=== PATIENT | male | born 1955 | race Caucasian/White ===

== ENCOUNTER 2016-10-20 07:48 | Outpatient (CLI) ==
[2014-03-23 18:02] VITALS: BMI 25.8
[2016-10-20 08:03] LABS: BASOPHILS % (AUTO) 0.3 % (0.0-3.0); EOSINOPHILS # (AUTO) 0.1 K/ul (0.0-0.7); EOSINOPHILS % (AUTO) 1.5 % (0.0-7.0); HEMATOCRIT 36.2 % (42.0-52.0); HEMOGLOBIN 11.3 g/dl (14.0-18.0); IMMATURE GRANULOCYTE % (AUTO) 0.7 % (0.0-5.0); LYMPHOCYTES # (AUTO) 0.9 K/uL (0.60-3.4); LYMPHOCYTES % (AUTO) 14.4 (10.0-50.0); MEAN CORPUSCULAR HEMOGLOBIN 28.8 pg (27.0-31.0); MEAN CORPUSCULAR HGB CONC 31.2 (31.8-35.4); MEAN CORPUSCULAR VOLUME 92.3 fl (80.0-94.0); MONOCYTES # (AUTO) 0.5 K/uL (0.4-2.0); MONOCYTES % (AUTO) 7.5 (0-10); NEUTROPHILS # (AUTO) 4.6 K/ul (2.0-6.9); NEUTROPHILS % (AUTO) 75.6; PLATELET COUNT 211 10^3/uL (140-440); RED BLOOD COUNT 3.92 10^6/ul (4.70-6.10); WHITE BLOOD COUNT 6.12 K/ul (4.2-10.2)
[2016-10-20 08:40] LABS: ALBUMIN 3.4 g/dL (3.4-5.0); ALBUMIN/GLOBULIN RATIO 1.03; ANION GAP 12.1; BILIRUBIN,TOTAL 0.24 mg/dL (0.00-1.20); BUN/CREATININE RATIO 17.34; CHOL/HDL RATIO 5.5 (4.5-6.4); CREATININE 0.98 mg/dL (0.60-1.10); POTASSIUM 4.1 mmol/L (3.5-5.1); TOTAL PROTEIN 6.7 g/dL (6.4-8.2)
--- NOTE | 2016-10-20 09:13 | MRI ---
EXAM: MRI of the left shoulder without contrast COMPARISON: None available. HISTORY: Left shoulder pain with decreased range of motion for 1 week. No known injury. TECHNIQUE: Multiplanar noncontrast MR images of the left shoulder were acquired using a 1.5 Briana m agnet. FINDINGS: There is marked glenohumeral joint osteoarthrosis with extensive full-thickness cartilage defects on both sides of the joint with subchondral edema/cystic change/sclerosis articular surface remodeling. There are small marginal osteophytes. Articular surface remodeling is most pronounced at the level of the posterior glenoid. Mild posterior subluxation of the humeral head within the g lenoid fossa without a lindsey dislocation. There is a large glenohumeral joint effusion with some sy novial thickening and thin internal septations throughout the joint. Cortical irregularity involvin g the superior portion of the humeral head extending just proximal to the greater tuberosity attachm ent the rotator cuff measuring 1.2 cm extent with underlying marrow edema as well as some cortical i rregularity at the level of the glenoid. This could represent the erosive change in the setting of an inflammatory arthritis such as rheumatoid arthritis or infection and clinical correlation is tasha mmended. Alternatively, this could represent sequela of previous impaction injury though no history of trauma was provided. Small filling defects throughout the posterior portion of the joint sugges ting small loose bodies. Diminished size irregularity the glenoid labrum most pronounced superiorly and posteriorly related to a degenerative type tear. There is moderate supraspinatus and subscapularis tendinosis with mild infraspinatus tendinosis. Mi ld thinning and articular surface irregularity the supraspinatus. The critical zone measuring 1.4 c m medial to lateral dimension related to articular surface fraying/partial thickness articular surfa ce tear. This involves less than 50% of the tendon thickness without a full-thickness tear or tendo n retraction. No significant fluid in the subacromial/subdeltoid bursa. Hyperintense signal and thi ckening of the axillary pouch which may represent sequela of previous capsular sprain or changes of adhesive capsulitis. There is a tear of the long head biceps within its intra-articular and proximal bicipital groove seg ments. Capsular hypertrophy and marginal osteophytes at the acromioclavicular joint without evidence of an os acromiale or abnormal widening of the acromioclavicular joint space. No soft tissue mass identif ied. IMPRESSION: 1. Marked glenohumeral joint osteoarthrosis. Mild posterior subluxation of the humeral head within the glenoid fossa without a lindsey dislocation. 2. Large, complex glenohumeral joint effusion. Reactive marrow edema and possibly erosive change i nvolving the humeral head and glenoid and correlation for signs of an inflammatory arthritis such as rheumatoid arthritis versus infection is recommended. Correlation with aspiration is recommended. 3. Degenerative type tear of the glenoid labrum. 4. Tear of the long head biceps. 5. Moderate rotator cuff tendinosis. Articular surface fraying/shallow partial thickness articular surface tear of the supraspinatus without a full-thickness tear or tendon retraction. 6. Hyperintense signal and thickening of the axillary pouch which may represent sequela previous ca psular injury or changes of adhesive capsulitis. 7. Loose bodies.
== END 2016-10-20 07:49 | disposition home or self-care (01) ==
LOC: RAD 07:48
PROVIDERS: ATTEND Nurse Practitioner Family
DX: M25.512 Pain in left shoulder (principal); Z00.00 Encounter for general adult medical examination without abnormal findings; Z12.5 Encounter for screening for malignant neoplasm of prostate
CPT/HCPCS: 36415; 80053; 80061; 84443; 85025

== ENCOUNTER 2017-01-19 07:33 | Outpatient (CLI) ==
[2014-03-23 18:02] VITALS: BMI 25.8
[2017-01-19 08:32] LABS: ERYTHROCYTE SEDIMENTATION RATE 39 mm/hr (0-15); ESR INTERNAL QC INTERNAL QC VALID
--- NOTE | 2017-01-19 12:21 | NM ---
EXAM: Whole body bone scan HISTORY: Left shoulder pain, no trauma, COMPARISON: MRI of left shoulder on 10/20/2016 showed osteoarthrosis. Large joint effusion. TECHNIQUE: Anterior and posterior whole body bone scans were obtained following the intravenous admi nistration of 26.8 mCi of technetium 99m HDP, followed by spot views of areas of interest. FINDINGS: Moderately increased isotope activity is seen involving T8 vertebral body. Mild to modera tely increased isotope uptake is seen involving T10 vertebral body. These vertebrae may be partiall y collapsed. Intense isotope activity is present in the region of the left humeral head. This could be traumatic or due to severe arthrosis. Intense isotope activity is present in the region of the left ankle. This could be due to acute inj ury. No other abnormal focus of increased or decreased isotope uptake is seen. Kidneys and soft tissues appear unremarkable. IMPRESSION: 1. Increased isotope activity identified involving T8 and T10 vertebral bodies which may be partial ly collapsed. Could be traumatic. Suggest radiographic correlation. 2. Traumatic or severe arthritic change left humeral head. 3. Traumatic lesion left ankle.
[2017-01-20 08:04] LABS: RHEUMATOID ARTHRITIS FACTOR < 10.0 IU/mL (0.0-13.9)
[2017-01-20 15:20] LABS: A/G RATIO 1.2 (0.7-1.7); ALPHA-1 GLOBULIN 0.3 g/dL (0.0-0.4); ALPHA-2 GLOBULIN 0.8 g/dL (0.4-1.0); BETA GLOBULIN 1.1 g/dL (0.7-1.3); GAMMA GLOBULIN 0.9 g/dL (0.4-1.8)
== END 2017-01-19 07:34 | disposition home or self-care (01) ==
LOC: RAD 07:33
PROVIDERS: ATTEND Orthopaedic Surgery
DX: M25.512 Pain in left shoulder (principal); M75.92 Shoulder lesion, unspecified, left shoulder; S46.112A Strain of muscle, fascia and tendon of long head of biceps, left arm, initial encounter
CPT/HCPCS: 36415; 84153; 84165; 85651; 86430

== ENCOUNTER 2017-06-03 12:03 | Outpatient (CLI) ==
[2014-03-23 18:02] VITALS: BMI 25.8
--- NOTE | 2017-06-03 14:18 | MRI ---
EXAM: MRI of the left shoulder without contrast COMPARISON: MRI of the left shoulder 10/20/2016. Fluoroscopic guided left shoulder aspiration 02/09. Bone scan 01/19/2017. HISTORY: Shoulder pain and decreased range of motion. No known injury. Chondrocalcinosis. TECHNIQUE: Multiplanar noncontrast MR images of the left shoulder were acquired using a 1.2 Briana m agnet. FINDINGS: There is moderate supraspinatus and subscapularis tendinosis with mild infraspinatus tend inosis. Mild thinning articular surface irregularity of the supraspinatus at the critical zone thro ugh the insertional fibers related to articular surface fraying/shallow partial-thickness articular surface tear. This is unchanged without a full-thickness tear or tendon retraction. Trace fluid in the subacromial/subdeltoid bursa. There is marked glenohumeral joint osteoarthrosis with extensive full-thickness cartilage defects on both sides of the joint with subchondral edema/cystic change/sclerosis. Progressive deformity noman deling of the articular surface of the glenoid with some posterior subluxation of the humeral head w ithin the glenoid fossa. Erosive change of the humeral head posteriorly and superiorly as previousl y described with underlying marrow edema. Diminished size of the glenoid labrum suggesting a degene rative type tear. Large glenohumeral joint effusion with thin internal septations and synovial thic kening, nonspecific. Correlate with results previous aspiration. Loose bodies posteriorly. The long head of the biceps is torn within its intra-articular and proximal bicipital groove segment s. Moderate hypertrophic degenerative changes of the acromioclavicular joint. No evidence of an os acr omiale or abnormal widening of the acromioclavicular joint space. No soft tissue mass. Diffuse mus osei atrophy. IMPRESSION: 1. Large, complex glenohumeral joint effusion as described on the previous study. This is nonspeci fic but differential considerations including infection, an inflammatory arthritis such as rheumatoi d arthritis or crystal deposition disease such as gout. Correlate with clinical history and results of previous aspiration. 2. Marked glenohumeral joint osteoarthrosis with progressive remodeling and irregularity of the art icular surface of the glenoid. Erosive changes of the humeral head as previously described. 3. Moderate rotator cuff tendinosis. Articular surface fraying/shallow partial-thickness articular surface tear of the supraspinatus. No full-thickness tear or tendon retraction. 4. Tear of the long head biceps. 5. Hypertrophic degenerative changes of the acromioclavicular joint. 6. Degenerative type tear of the glenoid labrum. 7. Muscle atrophy. 8. Fluid in the subacromial/subdeltoid bursa.
== END 2017-06-03 12:04 | disposition home or self-care (01) ==
LOC: RAD 12:03
PROVIDERS: ATTEND Orthopaedic Surgery
DX: M11.20 Other chondrocalcinosis, unspecified site (principal)

== ENCOUNTER 2017-06-12 17:39 | Emergency (ER) ==
[2017-06-12 17:43] VITALS: BP 128/83; TEMP 100.5; BMI 27.3
[2017-06-12 18:27] LABS: BASOPHILS % (AUTO) 0.3 % (0.0-3.0); EOSINOPHILS # (AUTO) 0.1 K/ul (0.0-0.7); EOSINOPHILS % (AUTO) 0.8 % (0.0-7.0); HEMATOCRIT 31.1 % (42.0-52.0); HEMOGLOBIN 9.6 g/dl (14.0-18.0); IMMATURE GRANULOCYTE % (AUTO) 0.3 % (0.0-5.0); LYMPHOCYTES # (AUTO) 1.1 K/uL (0.60-3.4); LYMPHOCYTES % (AUTO) 12.5 (10.0-50.0); MEAN CORPUSCULAR HEMOGLOBIN 24.1 pg (27.0-31.0); MEAN CORPUSCULAR HGB CONC 30.9 (31.8-35.4); MEAN CORPUSCULAR VOLUME 78.1 fl (80.0-94.0); MONOCYTES # (AUTO) 0.8 K/uL (0.4-2.0); MONOCYTES % (AUTO) 8.5 (0-10); NEUTROPHILS # (AUTO) 6.8 K/ul (2.0-6.9); NEUTROPHILS % (AUTO) 77.6; PLATELET COUNT 325 10^3/uL (140-440); RED BLOOD COUNT 3.98 10^6/ul (4.70-6.10); WHITE BLOOD COUNT 8.78 K/ul (4.2-10.2)
--- NOTE | 2017-06-12 18:35 | ED.PDOC ---
General ED Provider: Dr. ERNESTO HOFFMAN Chief Complaint: Non-specific Complaint Stated Complaint: dysphagia, weight loss Time Seen by Physician: 17:45 ( OCCASION HEMATEMESIS) Mode of Arrival: Walk-In Information Source: Patient Exam Limitations: No limitations [facility] T[facility] Documentation Reviewed and Agree: Yes GI Complaint Exam - Abdominal Pain Complaint/Exam Onset: Gradual Duration: OVER COURSE OF SEVERAL MONTHS HAS INCREASED DYSPHAGIA TO SOLIDS Symptoms Are: Resolved Timing: Constant Initial Severity: Mild Current Severity: Mild Character: Reports: Aching Aggravating: Reports: Food Alleviating: Reports: None Associated Signs and Symptoms: Reports: Nausea, Vomiting. Denies: Diaphoresis, Fever, Cough, Chest pain, Dizziness, Back pain, Constipation, Blood in stool, Dysuria, Urinary frequency, Decreased urine output, Decreased appetite, Discharge, Diarrhea, Decreased activity AAA Risk Factors: Reports: Smoking Cardiac Risk Factors: Reports: Smoking Review of Systems - Review Of Systems Constitutional: Reports: Malaise Eyes: Reports: No symptoms Ears, Nose, Mouth, Throat: Reports: Throat pain Respiratory: Reports: No symptoms Cardiac: Reports: No symptoms GI: Reports: No symptoms : Reports: No symptoms Musculoskeletal: Reports: No symptoms Skin: Reports: No symptoms Neurological: Reports: No symptoms Endocrine: Reports: No symptoms Hematologic/Lymphatic: Reports: No symptoms All Other Systems: Reviewed and Negative Past Medical History - Past Medical History Previously Healthy: Yes Endocrine: Reports: None Cardiovascular: Reports: None Respiratory: Reports: None Hematological: Reports: None Gastrointestinal: Reports: None Genitourinary: Reports: None Neuro/Psych: Reports: None Musculoskeletal: Reports: None Cancer: Reports: None - Surgical History General Surgical History: Reports: None - Family History Family History: Reports: None - Social History Smoking Status: Current every day smoker Hx Substance Use: No Alcohol Screening: None Physical Exam - Physical Exam Appearance: Well-appearing, No pain distress, Well-nourished Eyes: SHIRAZ, EOMI, Conjunctiva clear ENT: Ears normal, Nose normal, Oropharynx normal Respiratory: Airway patent, Breath sounds clear, Breath sounds equal, Respirations nonlabored Cardiovascular: RRR, Pulses normal, No rub, No murmur GI/: Soft, Nontender, No masses, Bowel sounds normal, No Organomegaly Musculoskeletal: Normal strength, ROM intact, No edema, No calf tenderness Skin: Warm, Dry, Normal color Neurological: Sensation intact, Motor intact, Reflexes intact, Cranial nerves intact, Alert, Oriented Psychiatric: Affect appropriate, Mood appropriate Critical Care Note - Critical Care Note Total Time (mins): 0 Course - Course Hematology/Chemistry: 06/12/17 18:22 06/12/17 18:22 Orders, Labs, Meds: Lab Review 06/12/17 18:22 WBC 8.78 RBC 3.98 L Hgb 9.6 L Hct 31.1 L MCV 78.1 L MCH 24.1 L MCHC 30.9 L RDW Coeff of Angelica 15.3 H Plt Count 325 Immature Gran % (Auto) 0.3 Neut % (Auto) 77.6 Lymph % (Auto) 12.5 Gosper % (Auto) 8.5 Eos % (Auto) 0.8 Baso % (Auto) 0.3 Immature Gran # (Auto) 0.0 Neut # 6.8 Lymph # 1.1 Gosper # 0.8 Eos # 0.1 Baso # 0.0 PT 10.1 INR 0.99 APTT 22.4 L Sodium 141 Potassium 3.9 Chloride 105 Carbon Dioxide 22 L Anion Gap 17.9 BUN 16 Creatinine 1.04 Estimated GFR (MDRD) 73.00 BUN/Creatinine Ratio 15.38 Glucose 109 Calcium 10.0 Total Bilirubin 0.32 AST 10 L ALT < 6 L Alkaline Phosphatase 60 Total Protein 7.1 Albumin 3.7 Globulin 3.4 Albumin/Globulin Ratio 1.09 Orders Category Date Time Status CBC W/ AUTO DIFF Stat LAB 06/12/17 18:22 Completed COMPREHENSIVE METABOLIC PANEL Stat LAB 06/12/17 18:22 Completed MOLECULAR GROUP A STREP Stat LAB 06/12/17 18:22 Completed PARTIAL THROMBOPLASTIN TIME Stat LAB 06/12/17 18:22 Completed PT WITH INR Stat LAB 06/12/17 18:22 Completed RAPID STREP SCREEN [STREP SCREEN] Stat LAB 06/12/17 18:22 Completed CHEST, 2 VIEWS PA & LAT Stat RADS 06/12/17 18:17 Completed Vital Signs: Temp Pulse Resp BP Pulse Ox 06/12/17 17:39 100.5 F H 103 H 20 128/83 95 Departure - Departure Time of Disposition: 19:00 (need for johnson/coloscopy to rule out cancer discussed rn at bedside ) Disposition: HOME SELF-CARE Discharge Problem: Anemia Dysphagia Qualifiers: Dysphagia type: unspecified Qualifier Code: (R13.10) Dysphagia, unspecified Instructions: Dysphagia (ED), Hematemesis (ED) Condition: Good Pt referred to PMD for follow-up: Yes (TOLD PT MUST HAVE ENDOSCOPY TO RULE OUT CANCER ) Additional Instructions: Follow up with family physician regarding scans performed in this ER. Allergies/Adverse Reactions: Allergies No Known Allergies Allergy (Verified 06/12/17 17:45) Home Medications: Ambulatory Orders Fluticasone/Salmeterol 250/50 [Advair 250-50 Diskus] 1 puff IH BID 03/23/14 Disposition Discussed With: Patient
[2017-06-12 18:41] LABS: PARTIAL THROMBOPLASTIN TIME 22.4 SEC (23.9-40.0); PROTHROMBIN TIME 10.1 SEC (9.3-11.0)
[2017-06-12 18:48] LABS: ALANINE AMINOTRANSFERASE < 6 U/L (12-78); ALBUMIN 3.7 g/dL (3.4-5.0); ALBUMIN/GLOBULIN RATIO 1.09; ALKALINE PHOSPHATASE 60 U/L (56-119); ANION GAP 17.9; ASPARTATE AMINO TRANSFERASE 10 U/L (15-37); BILIRUBIN,TOTAL 0.32 mg/dL (0.00-1.20); BLOOD UREA NITROGEN 16 mg/dL (7-18); BUN/CREATININE RATIO 15.38; CARBON DIOXIDE 22 mmol/L (23-31); CHLORIDE 105 mmol/L (98-107); CREATININE 1.04 mg/dL (0.60-1.10); GLUCOSE 109 mg/dL (82-115); POTASSIUM 3.9 mmol/L (3.5-5.1); SODIUM 141 mmol/L (136-145); TOTAL PROTEIN 7.1 g/dL (5.8-8.1)
--- NOTE | 2017-06-12 19:08 | DI ---
EXAM: Chest two views CLINICAL INDICATION: Cough. COMPARISON: 02/27/2017. FINDINGS: PA and lateral views of the thorax are provided. There are chronic underlying pulmonary parenchymal changes. The remainder of the pulmonary parenchy ma is clear and there is no pleural abnormality. The cardiomediastinal silhouette and visualized shanell ny structures are unchanged. IMPRESSION: No interval change, with no acute pulmonary abnormality.
== END 2017-06-12 19:34 | disposition home or self-care (01) ==
LOC: ED 17:39
DX: R13.10 Dysphagia, unspecified (principal); K92.0 Hematemesis; D64.9 Anemia, unspecified; R63.4 Abnormal weight loss; F17.210 Nicotine dependence, cigarettes, uncomplicated
CPT/HCPCS: 36415; 80053; 85025; 85610; 85730; 87651; 87880; 99283

== ENCOUNTER 2017-07-10 13:00 | Outpatient (RCR) ==
--- NOTE | 2017-07-10 10:01 | RS.OPPTEV2 ---
Date of Note: 07/08/17 Visit #: 1 Date of Evaluation: 07/08/17 Payer Source: Medicaid Date of Onset/Injury/Change in Status: 07/03/17 Surgery Performed?: Yes (L shld debridement and tendon repair) Procedure Performed: arthroscopic rotator cuff repair, debridement of joint including articular cartilage labrum, biceps tendon 07/03/17 Date of Procedure: 07/03/17 Treatment Diagnosis: L shoulder rotator cuff tear, biceps tendinopathy, pseudogout, OA History of Condition/Mechanism of Injury:: pt with L shld pain. MRI shows rotator cuff tendinosis, erosive OA, pseudogout, incomplete tear of biceps tendon. Prior Level of Function.....Patient was independent with: ADL's, Self Care, Ambulation/Mobility Level of Function: independent with ADL's with pain in L shld Functional Limitations: Sleep, Self Care, ADL's, Reaching, Pushing, Pulling, Lifting, Carrying Current Subjective/complaints:: pt states he has had trouble sleeping and getting comfortable. pt reports has not been using ice because was not told to do that. Sister reports the MD said he did repair the tendon. Sister reports MD said pt would need total shld replacement in a year. pt with cryocuff around shld. pt did not receive cooler attachment and had thought this was part of his brace and had not removed since 07/03/17 because he was told only a medical person could remove the sling. Advised pt's sister to call MD office about the other part of cryocuff. Treatment Side (optional): Left *Precautions: PROM only Medical History Medical History: COPD, Arthritis Medical History Comments:: MD 2015, GERD, Peptic ulcer disease, Stroke Surgical History Comments:: L shld tendon repair and debridement 07/03/17 Smoking Status: Current every day smoker Hx Home Medications: albuterol HFA 90 mcg/actuation inhaler, albuterol 2.5mg/ 3ml nebulizer solution, alum-mag hydroxide-simeth suspension, budesonide- formoterol actuation inhaler, lorazepam, pantoprazole, tiotropium, hydrocodone/ acetaminophen(new med for pain) Patient's Goals: Decrease pain and be able to use my arm. Pain Assessment - Pain Description Pain Location: L shld Pain Description: Burning, Sharp Current Pain Intensity: 8 Worst Pain Intensity: 10 Other Comments regarding Pain:: unable to get comfortable for sleep Functional Outcome Measure UE Functional Index: 31 (61% impaired) - G Codes & Severity Modifier G Codes & Modifier: n/a Source of G Code score: n/a Observation - Observation Inspection: pt seen with sling in place. Bruising noted to L shld, dressing intact. min non pitting edema noted to Lshld Posture: Forward Head, Rounded Shoulders, Increased Thoracic Kyphosis, Decreased Lumbar Lordosis Handedness: Right Gait - Gait Pattern General Gait Pattern Observation: No Deviations/Normal, Trunk Anterior to Pelvis Gait Comments: pt amb with flexed posture, no LOB noted. General Range of Motion: Cervical ROM WFL's with pain in L shld with R rotation and side bending. BLE ROM WFL's Muscle Strength: BLE 5/5. RUE 4+/5 Shoulder ROM: Right WFL's Shoulder Muscle Strength: Right WFL's - Left Shoulder ROM Left Shoulder Flexion: 30 (audible noise with ROM, pt states MD said is bone on bone) Left Shoulder Extension: 30 Left Shoulder Abduction: 45 Left Shoulder ROM Limitations: Soft Tissue Tightness, Muscle Weakness, Pain - Left Shoulder Strength Left Shoulder Flexion: Not Tested Left Shoulder Extension: Not Tested Left Shoulder Abduction: Not Tested Left Shoulder Adduction: Not Tested Left Shoulder External Rotation: Not Tested Left Shoulder Internal Rotation: Not Tested Comments: Lshld not MMT due to orders for PROM only. Elbow ROM: Bilaterally WFL's Elbow Muscle Strength: Right WFL's - Left Elbow Strength Left Elbow Extension: 3 Fair Left Elbow Flexion: 3 Fair Left Forearm Pronation: Not Tested Left Forearm Supination: Not Tested Comments: atleast 3/5 as noted by AROM Wrist ROM: Bilaterally WFL's Wrist Muscle Strength: Right WFL's - Left Wrist Strength Left Wrist Extension: 3 Fair Left Wrist Flexion: 3 Fair Left Wrist Radial Deviation: 3 Fair Left Wrist Ulnar Deviation: 3 Fair Palpation Palpation Findings: Tenderness, Muscle Guarding Comments:: to L shld/scapular area as well as cervical, upper trap. Sensation - Sensation Right Upper Extremity: Intact/Normal Left Upper Extremity: Intact/Normal Right Lower Extremity: Intact/Normal Left Lower Extremity: Intact/Normal Sensation Description: Within Normal Limits Balance - Sitting Balance Static Sitting Balance: Normal Dynamic Sitting Balance: Good - Standing Balance Static Standing Balance: Good Dynamic Standing Balance: Good - Comments Balance Assessment Comments: Tinetti score 23/28 Interventions - Exercise/Activities/Manual Therapy Exercises/Activities: PROM L shld Total minutes of Exercise: 15 Manual Therapy: n/a HOME EXERCISE PROGRAM: pt given written HEP with pendulum ex, scapular retraction as well as instructions for ice to decreased edema, pain - Charges Total Direct Minutes: 60 Total Treatment Time: 70 Procedures billed for this date of service:: eval 4 Assessment Assessment: pt presents with pain, edema and decreased ROM L shld s/p tendon repair and debridement. Feel pt would benefit from PT for PROM progressing as MD orders as well as education on positioning, don/doff brace, ice to decrease edema, as well as pendulum PROM ex to decrease pain as well as improve functional mobility Patient Education: Education of diagnosis, Home Exercise Program, Home Safety, Education of Plan of Care Rehab Potential: Good Short Term Goals Goal #1: pt rate pain < 7/10 L UE Goal to be met by: 07/23/17 Goal #2: pt with improved L shld ROM flex 45 abd 60 Goal to be met by: 07/23/17 Penitentiary Goals Goal #1: pt with improved ROM L shld flex 60 abd 90 with less pain. Goal to be met by: 07/31/17 Goal #2: pt demonstrate indepedence with HEP to improve ROM and function LUE Goal to be met by: 07/31/17 Goal #3: pt with improved strength LUE shld 2-/5 Goal to be met by: 07/31/17 Plan - Treatment to be Provided Procedures: Therapeutic Exercises (Current orders for PROM ONLY L shld), Therapeutic Activity, Manual Therapy, Patient Education Modalities: Electrical Stimulation, Ultrasound/Phonophoresis, Cryotherapy, Hot Packs - Treatment Plan Frequency: 2 X week Duration: 4 weeks ORDER # VISITS AND/OR THROUGH DATE: 8 visits through 07/31/17 - Treatment Code (1) Joint pain Code(s): M25.50 - PAIN IN UNSPECIFIED JOINT Qualifiers: Joint pain location: shoulder Laterality: left Qualified Code(s): M25.512 - Pain in left shoulder (2) Joint effusion Code(s): M25.40 - EFFUSION, UNSPECIFIED JOINT (3) Joint stiffness Code(s): M25.60 - STIFFNESS OF UNSPECIFIED JOINT, NOT ELSEWHERE CLASSIFIED
--- NOTE | 2017-07-10 16:37 | RS.OPPTDN ---
Subjective Date of Note: 07/10/17 Visit #: 2 Date of Evaluation: 07/08/17 Payer Source: Medicaid Treatment Diagnosis: L shoulder rotator cuff tear, biceps tendinopathy, pseudogout, OA Current Subjective/complaints:: Patient says he has taken his arm out of his sling and let hang. He says he is not sleeping well and is doing so in a "pull out bed." Reports his sister usually helps him with his pain medicine and did not take it prior to coming in today. *Precautions: PROM only Pain Assessment - Pain Description Pain Location: L upper arm Pain Description: Burning, Sharp Pain Description: no pain meds Current Pain Intensity: 7-8/10 - Heat/Cryotherapy Treatment: Cryotherapy (20 mins after therex to the L shoulder and upper arm in supine) Interventions - Exercise/Activities/Manual Therapy Exercises/Activities: Patient received PROM to the L shoulder and elbow. Patient performs shoulder shrugs in supine and scap adduction in sitting. Manual Therapy: n/a HOME EXERCISE PROGRAM: pt given written HEP with pendulum ex, scapular retraction as well as instructions for ice to decreased edema, pain - Charges Total Direct Minutes: 26 Total Treatment Time: 41 Procedures billed for this date of service:: cp, ex2 Assessment: Patient demo very guarded positioning with all PROM, but as time progressed, he was able to demo ~85 degrees shoulder flexion and 60 degrees shoulder abd. Discussed using ice consistently for pain and swelling and to wear a button down shirt. Patient Education: Education of diagnosis, Body/Joint mechanics, Home Exercise Program, Home Safety, Activity Modification, Education of Plan of Care Patient demonstrates compliance with HEP?: Yes Short Term Goals Goal #1: pt rate pain < 7/10 L UE Goal to be met by: 07/23/17 Goal #2: pt with improved L shld ROM flex 45 abd 60 Goal to be met by: 07/23/17 Skip Hoist Operator Goals Goal #1: pt with improved ROM L shld flex 60 abd 90 with less pain. Goal to be met by: 07/31/17 Goal #2: pt demonstrate indepedence with HEP to improve ROM and function LUE Goal to be met by: 07/31/17 Goal #3: pt with improved strength LUE shld 2-/5 Goal to be met by: 10/20/17 Plan PLAN OF CARE EXPIRES ON:: 07/31/17 ORDER # VISITS AND/OR THROUGH DATE: 8 visits through 07/31/17 PLAN: Progress Exercises (according to protocol)
== END 2017-07-11 ==
PROVIDERS: ATTEND Orthopaedic Surgery
DX: M25.512 Pain in left shoulder (principal); Z98.890 Other specified postprocedural states

== ENCOUNTER 2017-08-25 10:00 | Outpatient (RCR) ==
--- NOTE | 2017-08-13 16:50 | RS.OPPTDN ---
Subjective Date of Note: 08/13/17 Visit #: 11 Date of Evaluation: 07/08/17 Payer Source: Medicaid Treatment Diagnosis: L shoulder rotator cuff tear, biceps tendinopathy, pseudogout, OA Current Subjective/complaints:: Patient says using heat last appt seemed to relax his arm and improve pain level. He says he is wanting to see if Dr. Jenkins can see him sooner than 09/07/17, but also may just wait it out and then see if he can have TSR in [place]. *Precautions: PROM only Pain Assessment - Pain Description Pain Location: L upper arm Pain Description: Tightness, Aching Pain Description: no pain meds Current Pain Intensity: 5-6/10 - Heat/Cryotherapy Treatment: Hot Pack (15 mins to the L side of neck and along the shoulder and upper arm in sitting) Interventions - Exercise/Activities/Manual Therapy Exercises/Activities: Patient PROM to the L shoulder for flexion/abd, short range ER. AROM to wrist and elbow. Patient now blu ~155 degrees (passively) shoulder flexion today after prolonged PROM. Crepitus felt at random areas early in passive flexion, but as time progresses and motion improves, crepitus ceases. 5 and 7# digiflexors. Independent shoulder shrugs and assisted scap adduction multiple reps. Reapplied sling. Total minutes of Exercise: 30 Manual Therapy: n/a HOME EXERCISE PROGRAM: pt given written HEP with pendulum ex, scapular retraction as well as instructions for ice to decreased edema, pain - Charges Total Direct Minutes: 30 Total Treatment Time: 45 Procedures billed for this date of service:: hp, ex2 Assessment: Patient blu increased Passive flexion to ~155 degrees today in sitting. Decreased compensation and patient lean with ROM today compared to recent visits. Pain level remains moderate as he is not taking pain meds. Patient wishes to see MD sooner, but also says he may continue with the scheduled appt. It was discussed that patient may see if he could stay with his brother, which lives in [place], [place] and let him passively move his L UE and maintain his progress until he sees Dr. Jenkins in order to leave his current living situation. Patient Education: Home Exercise Program, Activity Modification Patient demonstrates compliance with HEP?: Yes Short Term Goals Goal #1: pt rate pain < 7/10 L UE Goal to be met by: 08/12/17 Progress towards Goal:: Progressing Goal #2: pt with improved L shld ROM flex 45 abd 60 Goal to be met by: 07/23/17 Progress towards Goal:: Met Residential Goals Goal #1: pt with improved ROM L shld flex 60 abd 90 with less pain. Goal to be met by: 08/28/17 Progress towards goal: Met Goal #2: pt demonstrate indepedence with HEP to improve ROM and function LUE Goal to be met by: 08/28/17 Progress towards goal: Progressing Goal #3: pt with improved strength LUE shld 2-/5 Goal to be met by: 08/28/17 Progress towards goal: Not Met Plan PLAN OF CARE EXPIRES ON:: 08/28/17 ORDER # VISITS AND/OR THROUGH DATE: 8 visits (2x4 until 08/28/17) PLAN: Progress Exercises (attend x 2 more weeks then attend MD appt)
--- NOTE | 2017-08-17 11:31 | RS.OPPTDN ---
Subjective Date of Note: 08/17/17 Visit #: 12 Date of Evaluation: 07/08/17 Payer Source: Medicaid Treatment Diagnosis: L shoulder rotator cuff tear, biceps tendinopathy, pseudogout, OA Current Subjective/complaints:: Patient says that his pain level is still high. Reports " My pain is nearly unbearable." He says he lost his exercises to do for home and his sister is requesting another copy. He also asks for Dr. Jenkins' s phone number. Says he has decided that he wants to get an earlier appt and hoping to have TSR. *Precautions: PROM only Pain Assessment - Pain Description Pain Location: L upper arm Pain Description: Tightness, Throbbing, Aching Pain Description: no pain meds Current Pain Intensity: 8/10 - Heat/Cryotherapy Treatment: Hot Pack (15 mins to the L shoulder/neck in sitting) Interventions - Exercise/Activities/Manual Therapy Exercises/Activities: Patient PROM to the L shoulder for flexion/abd, short range ER. AROM to wrist and elbow. Patient continues to blu ~155 degrees ( passively) shoulder flexion today after prolonged PROM. Crepitus felt at random areas early in passive flexion and was limited to only ~40 degrees initially. As time progresses and motion improves, crepitus ceases. 5 and 7# digiflexors. Independent shoulder shrugs and assisted scap adduction multiple reps. Reapplied sling. Reviewed HEP and encouraged him to perform these along with using ice. Patient also encouraged to contact his MD about his plans. Total minutes of Exercise: 30 Manual Therapy: n/a HOME EXERCISE PROGRAM: pt given written HEP with pendulum ex, scapular retraction as well as instructions for ice to decreased edema, pain - Charges Total Direct Minutes: 30 Total Treatment Time: 45 Procedures billed for this date of service:: hp, ex2 Assessment: Patient demo mod muscle guarding to the L UE during PROM today. He demo crepitus with increasing pain during shoulder flexion. Compensation by leaning to the R during early ROM, but later is able to allow for further shoulder flexion/abd. Patient Education: Education of diagnosis, Body/Joint mechanics, Home Exercise Program, Education of Plan of Care Comments: Patient received more copies of exercises. Short Term Goals Goal #1: pt rate pain < 7/10 L UE Goal to be met by: 08/12/17 Progress towards Goal:: Progressing Comments:: Increased the past few visits Goal #2: pt with improved L shld ROM flex 45 abd 60 Goal to be met by: 07/23/17 Progress towards Goal:: Met [facility] Goals Goal #1: pt with improved ROM L shld flex 60 abd 90 with less pain. Goal to be met by: 08/28/17 Progress towards goal: Met Comments: He is able to demo these ranges, but continues to have mod to severe pain. Goal #2: pt demonstrate indepedence with HEP to improve ROM and function LUE Goal to be met by: 08/28/17 Progress towards goal: Progressing Goal #3: pt with improved strength LUE shld 2-/5 Goal to be met by: 08/28/17 Progress towards goal: Not Met Comments: due to protocol and patient's reports of PROM only Plan PLAN OF CARE EXPIRES ON:: 08/28/17 ORDER # VISITS AND/OR THROUGH DATE: 8 visits (2x4 until 08/28/17) PLAN: Continue with PROM only due to MD orders. Patient to seek earlier f/u appt. to discuss possible TSR.
--- NOTE | 2017-08-19 13:48 | RS.OPPTDN ---
Subjective Date of Note: 08/19/17 Visit #: 13 Date of Evaluation: 07/08/17 Payer Source: Medicaid Treatment Diagnosis: L shoulder rotator cuff tear, biceps tendinopathy, pseudogout, OA Current Subjective/complaints:: Patient reports left shoulder pain "is killing me". States he will contact surgeons office as soon as he gets home to check on moving up his follow-up appointment. *Precautions: PROM only Pain Assessment - Pain Description Pain Location: L upper arm Pain Description: Tightness, Throbbing, Aching Pain Description: no pain meds Current Pain Intensity: 8/10 - Heat/Cryotherapy Treatment: Hot Pack ([id number] to the left shoulder prior to and 10mins following exercise. Patient in sitting. ) Interventions - Exercise/Activities/Manual Therapy Exercises/Activities: PROM of left shoulder for flexion, scaption, abduction, and short range ER. Passive and AROM to wrist and elbow. Passive shoulder flexion to 155 degrees (passively) shoulder flexion again today. 5 and 7# digiflexors. Shoulder shrugs and assisted scap abd/add multiple reps. Assisted patient with sling. Discussed HEP. Total minutes of Exercise: 25mins Manual Therapy: n/a HOME EXERCISE PROGRAM: pt given written HEP with pendulum ex, scapular retraction as well as instructions for ice to decreased edema, pain - Charges Total Direct Minutes: 25mins Total Treatment Time: 45mins Procedures billed for this date of service:: HP, EX2 Assessment: Patient continues to report a high pain rating and will contact physician this afternoon. Short Term Goals Goal #1: pt rate pain < 7/10 L UE Goal to be met by: 08/12/17 Progress towards Goal:: Regressing Comments:: Rates at 8/10 Goal #2: pt with improved L shld ROM flex 45 abd 60 Goal to be met by: 07/23/17 Progress towards Goal:: Met [facility] Goals Goal #1: pt with improved ROM L shld flex 60 abd 90 with less pain. Goal to be met by: 08/28/17 Progress towards goal: Met Goal #2: pt demonstrate indepedence with HEP to improve ROM and function LUE Goal to be met by: 08/28/17 Progress towards goal: Progressing Goal #3: pt with improved strength LUE shld 2-/5 Goal to be met by: 08/28/17 Progress towards goal: Not Met Plan PLAN OF CARE EXPIRES ON:: 08/28/17 ORDER # VISITS AND/OR THROUGH DATE: 8 visits (2x4 until 08/28/17) PLAN: Will continue patient this week for PROM per protocol.
--- NOTE | 2017-08-25 11:32 | RS.OPPTDN ---
Subjective Date of Note: 08/25/17 Visit #: 14 Date of Evaluation: 07/08/17 Payer Source: Medicaid Treatment Diagnosis: L shoulder rotator cuff tear, biceps tendinopathy, pseudogout, OA Current Subjective/complaints:: Patient reports he was able to speak with physicians office and appointment has been moved up to tomorrow. He reports pain at 8/10 at rest today and describes as "throbbing". Reports he to a Tramodol approx an hour ago, but states "they don't really help with the pain". *Precautions: PROM only Pain Assessment - Pain Description Pain Location: L upper arm Pain Description: Tightness, Throbbing, Aching Pain Description: no pain meds Current Pain Intensity: 8/10 at rest - Heat/Cryotherapy Treatment: Hot Pack ([id number] to the left shoulder prior to EX. Patient in sitting. ) Interventions - Exercise/Activities/Manual Therapy Exercises/Activities: PROM of left shoulder for flexion, scaption, abduction, and short range ER. Passive and AROM to wrist and elbow. 5 and 7# digiflexors. 1# dumbell for left wrist flex/ext and forearm sup/pronation. Shoulder shrugs and assisted scap abd/add multiple reps. Table slides. Assisted patient with sling. Discussed HEP and added self ROM with clasped hands. Total minutes of Exercise: 30mins Manual Therapy: n/a HOME EXERCISE PROGRAM: pt given written HEP with pendulum ex, scapular retraction as well as instructions for ice to decreased edema, pain - Objective Findings Observations,measurements,etc.: Passive shoulder flexion to 150-155 degrees ( passively) again today. AAROM left shoulder flexion to 95 degrees. 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 - Charges Total Direct Minutes: 30mins Total Treatment Time: 50mins Procedures billed for this date of service:: HP, EX2 Assessment: Patient continues to have a high pain rating. He will see his physician tomorrow for follow-up tomorrow. Patient will need to continue PROM and limited AAROM exercises. Short Term Goals Goal #1: pt rate pain < 7/10 L UE Goal to be met by: 08/12/17 Progress towards Goal:: Regressing Goal #2: pt with improved L shld ROM flex 45 abd 60 Goal to be met by: 07/23/17 Progress towards Goal:: Met Shelter Goals Goal #1: pt with improved ROM L shld flex 60 abd 90 with less pain. Goal to be met by: 08/28/17 Progress towards goal: Met Goal #2: pt demonstrate indepedence with HEP to improve ROM and function LUE Goal to be met by: 08/28/17 Progress towards goal: Progressing Goal #3: pt with improved strength LUE shld 2-/5 Goal to be met by: 08/28/17 Progress towards goal: Not Met Plan PLAN OF CARE EXPIRES ON:: 08/28/17 ORDER # VISITS AND/OR THROUGH DATE: 8 visits (2x4 until 08/28/17) PLAN: Hold at this time as initial POC has been completed and insurance approval has not been received. Patient may continue at a later date when he can progress to strengthening with post-op protocol and with insurance approval.
--- NOTE | 2017-08-28 15:55 | RS.CSNOTE ---
PT Case Note Date of Note: 08/28/17 Title of document: Call to MD office regarding patient Note: Spoke with Dr. Alejandro Jenkins's Acoustics Teacher. Explained that we have treated Mr. Talbert for 14 therapy sessions and at this time we have received no approval from [place] Medicaid for any of the visits. Explained that we would not be able to request more therapy and continue his therapy sessions, until we receive the initial therapy approval request. We have offered to have the patient come in once a week to review his HEP and progress it as his protocol indicates.
== END 2017-09-10 ==
PROVIDERS: ATTEND Orthopaedic Surgery
DX: M19.212 Secondary osteoarthritis, left shoulder (principal); R68.89 Other general symptoms and signs; S46.219A Strain of muscle, fascia and tendon of other parts of biceps, unspecified arm, initial encounter; M75.122 Complete rotator cuff tear or rupture of left shoulder, not specified as traumatic

== ENCOUNTER 2023-05-28 12:47 | Inpatient (IN) ==
--- NOTE | 2023-05-28 12:59 | ED.PDOC ---
General ED Provider: Dr. NIKHIL NICHOLAS MD Chief Complaint: Shortness of Air Stated Complaint: shortness of breath Time Seen by Provider: 05/28/23 12:57 Mode of Arrival: Walk-In Information Source: Patient Exam Limitations: No limitations Nursing and Triage Documentation Reviewed and Agree: Yes Respiratory Complaint Exam Shortness of Air Complaint/Exam Onset/Duration: ~1 week ago Symptoms Are: Worse Timing: Constant Initial Severity: Mild Current Severity: Moderate Character: Reports Dyspnea at rest, Dyspnea on exertion and Orthopnea Aggravating: Reports Movement and Recumbent position Alleviating: Reports None, Oxygen and Upright position Associated Signs and Symptoms: Reports Cough, Chest pain, Diaphoresis and Labored breathing Related History: Reports Similar episode (multiple, COPD) History of Healthcare-Acquired Pneumonia: Lives at shelter (Patient signed himself out of [facility] ~1 week ago after ~5-6 month stay.) Pulmonary Embolism Risk Factors: Reports None Cardiac Risk Factors: Reports None Pseudomonas Risk Factors: Reports Chronic Lung Disease Tuberculosis Risk Factors: Reports Communal living Home Oxygen Use: No Recent Stress Test: No Recent Echo/LV Function: No Respiratory Distress: Moderate Stridor Present: No Tracheal Deviation: No Subcutaneous Emphysema: No Accessory Muscle Use: Yes Retractions: Nasal Flaring, Supraclavicular, Intercostal and Diaphragmatic Diminished Breath Sounds: Yes Prolonged Expiratory Phase: Yes Unable to Speak Full Sentences: Yes Fatigue: Yes Leg Swelling: No Grunting Respirations: No Kussmaul Respirations: No Differential Diagnoses: Asthma, CHF, Pulmonary Edema, COPD Exacerbation, NH, Unstable Angina, Pneumonia, Pneumothorax, SARS, Bronchitis, Bronchiolitis, RSV, Bronchospasm, Laryngospasm, Mycoplasma, Pertussis, Sinusitis and URI Review of Systems Review Of Systems Constitutional: Reports No symptoms Respiratory: Reports Cough and Shortness of Breath All Other Systems: Reviewed and Negative [facility] Medical History (Updated 05/28/23 @ 18:48 by NIKHIL NICHOLAS MD) Arthritis M19.90 - Unspecified osteoarthritis, unspecified site (ICD-10) CVA (cerebral vascular accident) (~2015) I63.9 - Cerebral infarction, unspecified (ICD-10) Gastroesophageal reflux disease K21.9 - Gastro-esophageal reflux disease without esophagitis (ICD-10) Myocardial infarction (~2015) I21.9 - Acute myocardial infarction, unspecified (ICD-10) Family History (System 03/06/23 @ 10:46 by JONATHAN WALTON) SISTER Cancer BROTHER Cancer Social History (System 03/06/23 @ 10:46 by JONATHAN WALTON) Smoking and tobacco status: Current every day smoker Physical Exam Physical Exam Appearance: Reports Ill-appearing and Well-nourished Ill-appearing: Moderate Pain Distress: None Eyes: Reports SHIRAZ, EOMI and Conjunctiva clear ENT: Reports Ears normal and Nose normal Neck: Nonsupple (normal age-appropriate external appearance) Respiratory: Reports Airway patent, Breath sounds clear, Breath sounds equal, Breath sounds diminished and Respirations nonlabored Cardiovascular: Reports RRR GI/: Reports Soft, Nontender and Bowel sounds normal Musculoskeletal: Reports Normal strength Skin: Reports Warm, Dry and Normal color Neurological: Reports Sensation intact, Motor intact, Cranial nerves intact, Alert and Oriented Psychiatric: Reports Affect appropriate and Mood appropriate Interpretation EKG Interpretation EKG Interpretation By: ED Physician Time of EKG #1: 13:33 Rate: Tachy (125) Rhythm: Sinus Ectopy: None Mclean: NL ST Segment: Normal Interpretation: LAE EKG Comparison: Other (none available for comparison) Critical Care Note Critical Care Note Total Critical Care Time (mins): 0 Course Course 05/28/23 13:18 05/28/23 13:18 Orders, Labs, Meds: Lab Review 05/28/23 05/28/23 05/28/23 12:57 13:16 13:18 WBC 12.64 H RBC 4.65 L Hgb 13.3 L Hct 44.4 MCV 95.5 H MCH 28.6 MCHC 30.0 L RDW Coeff of Angelica 12.1 Plt Count 335 Immature Gran % (Auto) 1.0 Neut % (Auto) 84.4 H Lymph % (Auto) 5.3 L [place] % (Auto) 8.9 Eos % (Auto) 0.2 Baso % (Auto) 0.2 Neut # (Auto) 10.7 H Lymph # (Auto) 0.7 [place] # (Auto) 1.1 Eos # (Auto) 0.0 Baso # (Auto) 0.0 Immature Gran # (Auto) 0.1 Puncture Site Rrad Base Excess 4.0 H O2 Saturation 83.3 L ABG pH 7.36 ABG pCO2 52.0 H ABG pO2 50.0 L* ABG HCO3 29.4 H ABG Total CO2 31.0 H Daniele Test Pos Hemoglobin 1.2 Oxyhemoglobin 81.1 L Carboxyhemoglobin 4.3 H Total Hemoglobin 14.2 Sodium 141.8 Potassium 4.23 Chloride 98.5 Carbon Dioxide 31.2 H Anion Gap 16.33 BUN 21.9 H Creatinine 0.79 Estimated GFR (MDRD) 98.00 BUN/Creatinine Ratio 27.72 Glucose 114.3 H Calcium 9.27 Magnesium 1.51 L Total Bilirubin 0.53 AST 24.7 ALT 17.8 Alkaline Phosphatase 77.0 Total Creatine Kinase 48.3 L Troponin I 0.013 NT-Pro-B Natriuret Pep 771 H Total Protein 8.25 H Albumin 4.22 Globulin 4.03 Albumin/Globulin Ratio 1.04 Lipase 79.1 TSH 0.178 L Free T4 2.18 Influ A Molecular Assay Negative by naat Influ B Molecular Assay Negative by naat SARS CoV-2 RNA Rapid MARISOL Negative Orders Category Date Time Status ABG DRAW REQUEST Stat CARDIO 05/28/23 12:56 Completed EKG-(ED ONLY) Stat CARDIO 05/28/23 13:28 Completed Saline Lock [ED IV/MEDIPORT/POWERPORT] .ONCE EMERGENCY 05/28/23 15:24 Active ABG COOX Stat LAB 05/28/23 12:57 Completed CBC W/ AUTO DIFF Stat LAB 05/28/23 13:18 Completed CK [CREATINE KINASE] Stat LAB 05/28/23 13:18 Completed COMPREHENSIVE METABOLIC PANEL Stat LAB 05/28/23 13:18 Completed COVID [SARS COV-2 RNA RAPID MARISOL] Stat LAB 05/28/23 13:16 Completed FLU A & B MOLECULAR [FLU A/B MOLECULAR] Stat LAB 05/28/23 13:16 Completed FREE T4 (FREE THYROXINE) Stat LAB 05/28/23 13:18 Completed LIPASE Stat LAB 05/28/23 13:18 Completed MAGNESIUM Stat LAB 05/28/23 13:18 Completed PROBNP ED [NT-PROBNP(ED)] Stat LAB 05/28/23 13:18 Completed RAPID STREP SCREEN [MOLECULAR GROUP A STREP] Stat LAB 05/28/23 13:16 Completed TROPONIN I Stat LAB 05/28/23 13:18 Completed TSH [THYROID STIMULATING HORMONE] Stat LAB 05/28/23 13:18 Completed 0.9 % Sodium Chloride [Saline Flush] Meds 05/28/23 15:24 Active 1 syr IVF PRN PRN Ceftriaxone/D5w 1 gm Premix [Rocephin 1 gm/50 ml D5w] Meds 05/28/23 15:30 Active 1 gm in 50 ml IV DAILY Ipratropium/Albuterol Neb [Duoneb] Meds 05/28/23 13:46 Discontinued 3 ml NEB ONCE STA Sodium Chloride 0.9% [Sodium Chloride] 1,000 ml Meds 05/28/23 18:37 Discontinued IV BOLUS CHEST, 2 VIEWS PA & LAT Stat RADS 05/28/23 12:59 Completed Medications Generic Name Dose Route Start Last Admin Trade Name Freq PRN Reason Stop Dose Admin Acetaminophen 650 mg 05/28/23 19:30 Acetaminophen 325 Mg Tablet PO Q4H PRN Mild Pain Albuterol Sulfate 2.5 mg 05/28/23 19:30 05/28/23 20:15 Albuterol Sulfate 0.083% Vial.Neb NEB 2.5 mg RTQ4H PRN Administration Wheezing Albuterol/Ipratropium 3 ml 05/28/23 22:00 05/29/23 01:50 Ipratropium/Albuterol Vial.Neb NEB 3 ml RTQ4H QUINN Administration CEFTRIAXONE/D5W 1 GM PREMIX 1 gm in 50 mls @ 75 mls/hr 05/28/23 15:30 05/28/23 15:52 Rocephin 1 Gm/50 Ml D5w IV 05/31/23 15:29 75 mls/hr DAILY QUINN Administration Azithromycin 500 mg/ Sodium 250 mls @ 250 mls/hr 05/28/23 20:00 05/28/23 20:50 Chloride IV 05/31/23 19:59 250 mls/hr DAILY QUINN Administration Ketorolac Tromethamine 15 mg 05/28/23 20:11 05/29/23 03:06 Ketorolac Tromethamine 15 Mg/Ml Vial IVP 06/01/23 20:12 15 mg Q6HR PRN Administration Pain Methylprednisolone Sodium Succinate 40 mg 05/28/23 21:00 05/28/23 20:49 Methylprednisolone Sod Succ/Pf 125 Mg/2 Ml Vial IVP 40 mg Q8HR QUINN Administration Ondansetron HCl 4 mg 05/28/23 20:11 05/29/23 03:06 Ondansetron Hcl/Pf 4 Mg/2 Ml Sdv IVP 4 mg Q6H PRN Administration nausea & or Vomiting Sodium Chloride 1 syr 05/28/23 15:24 0.9% Sodium Chloride 10 Ml Disp.Syrin IVF PRN PRN To flush IV Discontinued Medications Generic Name Dose Route Start Last Admin Trade Name Freq PRN Reason Stop Dose Admin Al Hydroxide/Mg Hydroxide 30 ml 05/28/23 20:16 05/28/23 20:50 Mag Hydrox/Al Hydrox/Simeth 30 Ml Cup PO 05/28/23 20:17 30 ml ONCE ONE Administration Albuterol/Ipratropium 3 ml 05/28/23 13:46 05/28/23 13:55 Ipratropium/Albuterol Vial.Neb NEB 05/28/23 13:47 3 ml ONCE STA Administration Sodium Chloride 1,000 mls @ 1,000 mls/hr 05/28/23 18:37 05/28/23 18:39 Sodium Chloride IV 05/28/23 19:36 1,000 mls/hr BOLUS STA Administration CEFTRIAXONE/D5W 1 GM PREMIX 1 gm in 50 mls @ 75 mls/hr 05/29/23 09:00 Rocephin 1 Gm/50 Ml D5w IV 06/01/23 08:59 DAILY QUINN Metoclopramide HCl 10 mg 05/28/23 20:16 05/28/23 21:06 Metoclopramide Hcl 10 Mg/2 Ml IVP 05/28/23 20:17 10 mg ONCE ONE Administration Vital Signs: Temp Pulse Resp BP Pulse Ox 05/28/23 12:59 98.3 F 136 H 29 H 152/86 H 82 L Patient presents with approximately 1 week history of progressively worsening shortness of breath. On arrival his oxygen saturation on room air was noted to be 79%. An ABG was done on arrival, and when posted it was consistent with decreased Oxygen saturation and elevated CO2. He was placed on supplemental Oxygen, and is saturations normalized into the high 90s. Labs posted, significant for leukocytosis with a left shift and a fluid deficit. CXR reported 'Possible developing right lower lobe pneumonia with small effusions'. He was given IV Rocephin and IV normal saline to address. The Hospitalist LICENSED CLUB MANAGER, Manas Guevara, accepted him for admission. Discharge Plan Discharge Patient Disposition: ADMITTED INPATIENT Discharge Problem: Fluid volume deficit Community acquired pneumonia Qualifiers: Laterality: right Lung location: lower lobe of lung Qualified Code(s): J18.9 - Pneumonia, unspecified organism Did you review [place] [employer] for ALL controlled substances?: Not Applicable ED Provider: NIKHIL NICHOLAS Condition: Stable Physician Progress Note: []
[2023-05-28 13:08] LABS: ABG O2 HGB 81.1 % (95-100); ABG PH 7.36 (7.35-7.45); COHb 4.3 (0.5-1.5); HCO3 29.4 (21-28); MetHb 1.2 (0-1.5); sO2 83.3 % (94-98); tHb 14.2 g/dl (11.7-17.4)
[2023-05-28 13:24] LABS: BASOPHILS % (AUTO) 0.2 % (0.0-3.0); EOSINOPHILS % (AUTO) 0.2 % (0.0-7.0); HEMATOCRIT 44.4 % (42.0-52.0); HEMOGLOBIN 13.3 g/dl (14.0-18.0); IMMATURE GRANULOCYTE # (AUTO) 0.1 (0.0-1.0); LYMPHOCYTES # (AUTO) 0.7 K/uL (0.60-3.4); LYMPHOCYTES % (AUTO) 5.3 (10.0-50.0); MEAN CORPUSCULAR HEMOGLOBIN 28.6 pg (27.0-31.0); MEAN CORPUSCULAR VOLUME 95.5 fl (80.0-94.0); MONOCYTES # (AUTO) 1.1 K/uL (0.4-2.0); MONOCYTES % (AUTO) 8.9 (0-10); NEUTROPHILS # (AUTO) 10.7 K/ul (2.0-6.9); NEUTROPHILS % (AUTO) 84.4 % (42.2-75.2); PLATELET COUNT 335 10^3/uL (140-440); RDW COEFFICIENT OF VARIATION 12.1 % (11.6-14.8); RED BLOOD COUNT 4.65 10^6/ul (4.70-6.10); WHITE BLOOD COUNT 12.64 K/ul (4.2-10.2)
--- NOTE | 2023-05-28 13:39 | DI ---
EXAM: CHEST RADIOGRAPH TECHNIQUE: Two views. Frontal and lateral. HISTORY: Dyspnea COMPARISON: 03/05/2023 FINDINGS: There are small bilateral pleural effusions. There is emphysema. There are patchy chronic changes i n the lower lobes. Air space disease in the right lower lobe laterally appears somewhat more conspic uous and the possibility of developing pneumonia cannot be excluded. The heart size is normal. Left shoulder arthroplasty IMPRESSION: 1. Possible developing right lower lobe pneumonia with small effusions
[2023-05-28 13:41] LABS: ALANINE AMINOTRANSFERASE 17.8 U/L (0-50); ALBUMIN 4.22 g/dL (3.5-5.0); ASPARTATE AMINO TRANSFERASE 24.7 U/L (17-59); BILIRUBIN,TOTAL 0.53 mg/dL (0.2-1.3); BLOOD UREA NITROGEN 21.9 mg/dL (9-20); CALCIUM 9.27 mg/dL (8.4-10.2); CARBON DIOXIDE 31.2 mmol/L (22-30.0); CHLORIDE 98.5 mmol/L (98-107); CREATINE KINASE 48.3 U/L (55-170); CREATININE 0.79 mg/dL (0.60-1.10); GLUCOSE 114.3 mg/dL (74-106); MAGNESIUM 1.51 mg/dL (1.6-2.3); POTASSIUM 4.23 mmol/L (3.5-5.1); SODIUM 141.8 mmol/L (134.5-145); TOTAL PROTEIN 8.25 g/dL (6.3-8.2)
[2023-05-28 13:41] LABS: MOLECULAR FLU A NEGATIVE BY NAAT (NEGATIVE); MOLECULAR FLU B NEGATIVE BY NAAT (NEGATIVE)
[2023-05-28] MEDS ORDERED: DUONEB NEB STA (13:46)
[2023-05-28 13:51] LABS: TROPONIN I 0.013 ng/ml (0.0000-0.120)
[2023-05-28 14:00] LABS: SARS COV-2 RNA RAPID NAAT NEGATIVE (NEGATIVE)
[2023-05-28 14:09] LABS: THYROID STIMULATING HORMONE 0.178 uIU/L (0.465-4.68)
[2023-05-28] MEDS: ROCEPHIN 1 GM/50 ML D5W 1 GM/50 ML BAG IV SCH (15:52)
[2023-05-28] MEDS ORDERED: SODIUM CHLORIDE 1,000 ML IV STA (18:37)
[2023-05-28] MEDS ORDERED: ALBUTEROL 0.083% NEB NEB PRN (19:30)
[2023-05-28] MEDS ORDERED: TYLENOL PO PRN (19:30)
[2023-05-28] MEDS ORDERED: ZITHROMAX 500 MG in SODIUM CHLORIDE 250 ML IV SCH (20:00)
[2023-05-28] MEDS ORDERED: REGLAN IVP ONE (20:16)
[2023-05-28] MEDS ORDERED: MYLANTA SUSP PO ONE (20:16)
[2023-05-28 20:36] LABS: LIPASE 79.1 U/L (23-300)
[2023-05-28] MEDS: SOLU-MEDROL 125 MG IVP SCH (20:49)
[2023-05-28] MEDS: ZOFRAN 4 MG/2 ML IVP PRN (20:50)
[2023-05-28] MEDS: TORADOL IVP PRN (20:50)
[2023-05-28] MEDS: DUONEB NEB SCH (21:15)
[2023-05-28 23:50] VITALS: BMI 24.9
[2023-05-29 00:19] LABS: ABG O2 HGB 93.4 % (95-100); BEecf 6.6 (-2.0-3.0); COHb 2.7 (0.5-1.5); HCO3 33.5 (21-28); TCO2 35.7 (19-24); sO2 95.9 % (94-98); tHb 17.8 g/dl (11.7-17.4)
[2023-05-29 00:21] LABS: ABG PH 7.27 (7.35-7.45)
[2023-05-29 01:42] LABS: ABG O2 HGB 90.8 % (95-100); ABG PH 7.31 (7.35-7.45); BEecf 7.4 (-2.0-3.0); COHb 2.5 (0.5-1.5); HCO3 33.7 (21-28); MetHb 1.2 (0-1.5); TCO2 35.8 (19-24); sO2 92.9 % (94-98); tHb 18.2 g/dl (11.7-17.4)
[2023-05-29] MEDS: DUONEB NEB SCH ×3 (01:50→13:16)
[2023-05-29] MEDS: TORADOL IVP PRN (03:06)
[2023-05-29] MEDS: ZOFRAN 4 MG/2 ML IVP PRN (03:06)
--- NOTE | 2023-05-29 03:20 | CT ---
EXAM: CT ANGIOGRAPHY OF THE CHEST History: Respiratory difficulty Technique: 2.[address] of the chest utilizing CT angiography protocol. Multiplanar and m aximum intensity projection reformations were performed. FINDINGS: Technically adequate for evaluation of pulmonary arteries and aorta. There are no pulmona ry artery filling defects. Moderate - severe emphysema. Consolidative change of the posterior left lower lobe. Bronchial wall thickening in the left greater than right lower lobes. Mediastinal lymph node abundance without pathologic enlargement. Small hiatus hernia. There is reflux material colli mated in the esophagus. No acute chest wall abnormality. No acute findings of the upper abdomen. Impression: 1. No evidence of pulmonary artery thrombus 2. Bilateral lower lobe bronchial wall thickening, left greater than right. Endobronchial secretion s in the left lower lobe and some consolidative change posteriorly. Correlate for possible pneumonia . 3. Underlying emphysema All CT scans are performed using dose optimization techniques as appropriate to the performed exam an d include at least one of the following: Automated exposure control, adjustment of the mA and/or kV according t o size, and the use of iterative reconstruction technique.
[2023-05-29 04:55] LABS: ABG O2 HGB 64.6 % (95-100); BEecf 7.1 (-2.0-3.0); HCO3 33.8 (21-28); MetHb 0.6 (0-1.5); sO2 68.9 % (94-98); tHb 12.2 g/dl (11.7-17.4)
[2023-05-29 04:56] LABS: ABG PH 7.28 (7.35-7.45)
[2023-05-29 05:20] VITALS: BP 106/69; TEMP 98
[2023-05-29 05:27] LABS: BASOPHILS % (AUTO) 0.4 % (0.0-3.0); HEMOGLOBIN 11.6 g/dl (14.0-18.0); IMMATURE GRANULOCYTE # (AUTO) 0.2 (0.0-1.0); IMMATURE GRANULOCYTE % (AUTO) 2.3 % (0.0-5.0); LYMPHOCYTES # (AUTO) 0.4 K/uL (0.60-3.4); LYMPHOCYTES % (AUTO) 3.5 (10.0-50.0); MEAN CORPUSCULAR HEMOGLOBIN 29.1 pg (27.0-31.0); MEAN CORPUSCULAR HGB CONC 29.7 (31.8-35.4); MEAN CORPUSCULAR VOLUME 97.7 fl (80.0-94.0); MONOCYTES # (AUTO) 0.2 K/uL (0.4-2.0); MONOCYTES % (AUTO) 1.5 (0-10); NEUTROPHILS # (AUTO) 9.6 K/ul (2.0-6.9); NEUTROPHILS % (AUTO) 92.3 % (42.2-75.2); PLATELET COUNT 300 10^3/uL (140-440); RED BLOOD COUNT 3.99 10^6/ul (4.70-6.10); WHITE BLOOD COUNT 10.36 K/ul (4.2-10.2)
[2023-05-29 05:37] LABS: ALANINE AMINOTRANSFERASE 18.6 U/L (0-50); ALBUMIN 3.79 g/dL (3.5-5.0); ALKALINE PHOSPHATASE 61.1 U/L (56-119); ASPARTATE AMINO TRANSFERASE 24.7 U/L (17-59); BILIRUBIN,TOTAL 0.27 mg/dL (0.2-1.3); CALCIUM 8.11 mg/dL (8.4-10.2); CARBON DIOXIDE 32.2 mmol/L (22-30.0); CHLORIDE 97.1 mmol/L (98-107); CREATININE 0.87 mg/dL (0.60-1.10); GLUCOSE 134.4 mg/dL (74-106); POTASSIUM 4.36 mmol/L (3.5-5.1); SODIUM 138.6 mmol/L (134.5-145); TOTAL PROTEIN 7.51 g/dL (6.3-8.2)
[2023-05-29] MEDS ORDERED: SUBLIMAZE ONE (06:15)
[2023-05-29] MEDS ORDERED: VERSED ONE (06:15)
[2023-05-29] MEDS ORDERED: NARCAN ONE (06:33)
[2023-05-29 06:45] LABS: GASTRIC OCCULT BLOOD POSITIVE (NEGATIVE)
[2023-05-29] MEDS: VERSED IV ONE ×2 (07:22→08:19)
[2023-05-29] MEDS ORDERED: VERSED IV SCH (07:30)
[2023-05-29] MEDS ORDERED: SUBLIMAZE IV SCH (07:30)
[2023-05-29] MEDS ORDERED: SODIUM CHLORIDE IV SCH ×3 (07:30→10:15)
--- NOTE | 2023-05-29 07:49 | DI ---
EXAM: CHEST RADIOGRAPH TECHNIQUE: Single frontal chest radiograph. HISTORY: Line placement COMPARISON: 05/28/2023 FINDINGS: Minimal right basilar consolidation with a stable appearance. No new infiltrates. Possible trace lef t pleural effusion. The heart size is normal. Endotracheal tube is above the lolita. IMPRESSION: 1. Placement of endotracheal tube. Otherwise, no significant change
[2023-05-29 07:50] LABS: ABG O2 HGB 96.6 % (95-100); ABG PH 7.38 (7.35-7.45); COHb 1.9 (0.5-1.5); HCO3 33.1 (21-28); TCO2 34.8 (19-24); tHb 15.7 g/dl (11.7-17.4)
[2023-05-29] MEDS: SOLU-MEDROL 125 MG IVP SCH ×2 (08:08→13:12)
[2023-05-29] MEDS: ROCEPHIN 1 GM/50 ML D5W 1 GM/50 ML BAG IV SCH (08:11)
[2023-05-29] MEDS ORDERED: ZOFRAN 4 MG/2 ML IVP STA (08:15)
[2023-05-29] MEDS ORDERED: REGLAN IVP STA (08:15)
[2023-05-29] MEDS ORDERED: REGLAN ONE (08:19)
[2023-05-29] MEDS ORDERED: ZOFRAN 4 MG/2 ML ONE (08:19)
[2023-05-29] MEDS ORDERED: SUBLIMAZE IVP ONE (08:21)
[2023-05-29] MEDS ORDERED: VERSED IVP STA ×2 (08:21→08:35)
[2023-05-29] MEDS ORDERED: AMIDATE IVP STA (08:21)
[2023-05-29] MEDS ORDERED: ZEMURON IVP STA (08:21)
[2023-05-29] MEDS ORDERED: SANDOSTATIN ONE (08:27)
[2023-05-29] MEDS ORDERED: DIPRIVAN 1,000 MG/100 ML VIAL 1,000 MG/100 ML INFUS..BTL IV SCH (08:30)
[2023-05-29] MEDS ORDERED: SANDOSTATIN IV SCH (08:30)
[2023-05-29] MEDS ORDERED: SANDOSTATIN IVP STA (08:30)
[2023-05-29] MEDS: LIDOCAINE 1% 5 ML SDV ONE ×2 (08:47→13:07)
[2023-05-29] MEDS ORDERED: ROCEPHIN 1 GM/50 ML D5W 1 GM/50 ML BAG IV SCH (09:00)
[2023-05-29] MEDS ORDERED: PROTONIX IV IVP SCH (09:00)
[2023-05-29] MEDS ORDERED: ATIVAN IVP STA (09:03)
[2023-05-29 09:08] VITALS: RESP 18
--- NOTE | 2023-05-29 09:51 | PCM.SS ---
Documented by User: ALDO LEAL 05/29/23 11:37 Provider [facility] LE[facility] Date Admission Date: 05/28/23 Discharge Date Discharge Date: 05/29/23 Chief Complaint Reason For Visit: PNEUMONIA, FLUID DEFICIT History of Present Illness History of Present Illness: Admitted 05/28/23 18:43, this 67 year old /WHITE/M presented to the ER with complaints of shortness of breath that has been ongoing over the past week. Upon arrival to the ER, O2 saturation was found to be in the 70s-80s on RA. He was placed on 2L of O2 via NC at saturation increased to the 90s. He was found to have RLL pneumonia and admitted to the med/surg floor. Around 0000, patient became more short of breath and O2 sat dropped down into the 70s. ABG was obtained and hypercapnea was noted. BIPAP was ordered and placed on patient. Patient did not tolerate well and refused to wear. After 1 hour, ABG improved minimally and patient was placed on vapotherm. ABG also worsened on vapotherm. At approximately 0500, patient began vomiting bright red blood. He then voiced that he had known esophageal varices. Due to worsening ABGs and continual vomiting, patient was intubated around 0700. He received succinylcholine, etomidate, and rocuronium for rsi. He was then started on fentanyl and versed for sedation. ABG improved after 20 minutes on ventilator. Settings include: SIMV with tidal volume 400, rate of 18, peep of 5, and FiO2 100%. After abg, Fio2 decreased to 50%. Patient required extubation due to leak in cuff of tube at approximately 1030. Re-intubation successful. Unable to obtain ROS and HPI from patient upon exam due to sedation on vent. [facility] Medical History Arthritis M19.90 - Unspecified osteoarthritis, unspecified site (ICD-10) CVA (cerebral vascular accident) (~2015) I63.9 - Cerebral infarction, unspecified (ICD-10) Gastroesophageal reflux disease K21.9 - Gastro-esophageal reflux disease without esophagitis (ICD-10) Myocardial infarction (~2015) I21.9 - Acute myocardial infarction, unspecified (ICD-10) Family History SISTER Cancer BROTHER Cancer Social History Smoking and tobacco status: Current every day smoker Medications Mecications: Medications at Discharge (Home Meds & RX) albuterol sulfate 90 mcg/actuation aerosol inhaler (ProAir HFA) 1 - 2 puff inhalation Q4-6H PRN shortness of breath or wheezing ##1 10/17/16 tiotropium bromide 18 mcg capsule with inhalation device (Spiriva with HandiHaler) 1 cap inhalation DAILY ##1 09/29/17 fluticasone fur. 100 mcg-umeclid 62.5 mcg-vilant 25 mcg inhalat.powder (Trelegy Ellipta) 1 inh inhalation DAILY 05/28/23 Allergies Allergies Allergy/AdvReac Type Severity Reaction Status Date / Time No Known Allergies Allergy Verified 05/28/23 19:55 Physical Examination Appearance: Positive Ill-Appearing and Thin Head: Positive Normocephalic and Atraumatic Eyes: Positive SHIRAZ ENT: Positive Not Examined Neck: Positive Supple and Trachea Midline Heart: Positive RRR and No Murmurs Respiratory: Positive Airway patent (intubated ), Breath Sounds Equal and Breath Sounds Diminished GI/: Positive Soft, Nontender, Bowel sounds normal and No Distention Extremities: Positive Pedal Pulses Palpable Bilaterally Neurological: Positive Other (Sedated, responsive to pain, moving extremities) Psychiatric: Positive Not Examined Vital Signs (Last 4 Hours) Vital Signs Last 4 Hours: Vital Signs: Last 4 Hours 05/29/23 07:00 05/29/23 07:20 05/29/23 08:05 Respiratory Rate 18 Oxygen Delivery Method Ventilator Fraction of Inspired Oxygen (FIO2) 50 Telemetry Type Bedside Monitor Telemetry Monitoring Continues Telemetry Heart Rate 101 H Telemetry SPO2 100 EKG WA Interval 0.16 EKG QRS Interval 0.06 Telemetry Strip Reading Sinus Tach 05/29/23 07:20 05/29/23 08:20 Respiratory Rate 18 Oxygen Delivery Method Ventilator Fraction of Inspired Oxygen (FIO2) 100 Telemetry Type Telemetry Monitoring Telemetry Heart Rate Telemetry SPO2 EKG WA Interval EKG QRS Interval Telemetry Strip Reading Labs This Visit Labs This Visit: Labs This Visit 05/28/23 05/28/23 05/28/23 12:57 13:16 13:18 WBC 12.64 H RBC 4.65 L Hgb 13.3 L Hct 44.4 MCV 95.5 H MCH 28.6 MCHC 30.0 L RDW Coeff of Angelica 12.1 Plt Count 335 Immature Gran % (Auto) 1.0 Neut % (Auto) 84.4 H Lymph % (Auto) 5.3 L Granite % (Auto) 8.9 Eos % (Auto) 0.2 Baso % (Auto) 0.2 Neut # (Auto) 10.7 H Lymph # (Auto) 0.7 Granite # (Auto) 1.1 Eos # (Auto) 0.0 Baso # (Auto) 0.0 Immature Gran # (Auto) 0.1 Puncture Site Rrad Base Excess 4.0 H O2 Saturation 83.3 L ABG pH 7.36 ABG pCO2 52.0 H ABG pO2 50.0 L* ABG HCO3 29.4 H ABG Total CO2 31.0 H Daniele Test Pos Hemoglobin 1.2 Oxyhemoglobin 81.1 L Carboxyhemoglobin 4.3 H Total Hemoglobin 14.2 O2 Delivery Device Oxygen Liter Flow FiO2 % Sodium 141.8 Potassium 4.23 Chloride 98.5 Carbon Dioxide 31.2 H Anion Gap 16.33 BUN 21.9 H Creatinine 0.79 Estimated GFR (MDRD) 98.00 BUN/Creatinine Ratio 27.72 Glucose 114.3 H Calcium 9.27 Magnesium 1.51 L Total Bilirubin 0.53 AST 24.7 ALT 17.8 Alkaline Phosphatase 77.0 Total Creatine Kinase 48.3 L Troponin I 0.013 NT-Pro-B Natriuret Pep 771 H Total Protein 8.25 H Albumin 4.22 Globulin 4.03 Albumin/Globulin Ratio 1.04 Lipase 79.1 TSH 0.178 L Free T4 2.18 Gastric Fluid pH Gastric Occult Blood Influ A Molecular Assay Negative by naat Influ B Molecular Assay Negative by naat SARS CoV-2 RNA Rapid MARISOL Negative Blood Type 05/28/23 05/29/23 05/29/23 23:58 01:38 04:45 WBC 10.36 H RBC 3.99 L Hgb 11.6 L Hct 39.0 L MCV 97.7 H MCH 29.1 MCHC 29.7 L RDW Coeff of Angelica 12.0 Plt Count 300 Immature Gran % (Auto) 2.3 Neut % (Auto) 92.3 H Lymph % (Auto) 3.5 L Granite % (Auto) 1.5 Eos % (Auto) 0.0 Baso % (Auto) 0.4 Neut # (Auto) 9.6 H Lymph # (Auto) 0.4 L Granite # (Auto) 0.2 L Eos # (Auto) 0.0 Baso # (Auto) 0.0 Immature Gran # (Auto) 0.2 Puncture Site Lb Lb Base Excess 6.6 H 7.4 H O2 Saturation 95.9 92.9 L ABG pH 7.27 L* 7.31 L ABG pCO2 73.0 H 67.0 H ABG pO2 92.0 73.0 L ABG HCO3 33.5 H 33.7 H ABG Total CO2 35.7 H 35.8 H Daniele Test + + Hemoglobin 1.0 1.2 Oxyhemoglobin 93.4 L 90.8 L Carboxyhemoglobin 2.7 H 2.5 H Total Hemoglobin 17.8 H 18.2 H O2 Delivery Device Cannula Bipap Oxygen Liter Flow 3.00 FiO2 % 28.0 Sodium 138.6 Potassium 4.36 Chloride 97.1 L Carbon Dioxide 32.2 H Anion Gap 13.66 BUN 23.0 H Creatinine 0.87 Estimated GFR (MDRD) 88.00 BUN/Creatinine Ratio 26.43 Glucose 134.4 H Calcium 8.11 L Magnesium Total Bilirubin 0.27 AST 24.7 ALT 18.6 Alkaline Phosphatase 61.1 Total Creatine Kinase Troponin I NT-Pro-B Natriuret Pep Total Protein 7.51 Albumin 3.79 Globulin 3.72 Albumin/Globulin Ratio 1.01 Lipase TSH Free T4 Gastric Fluid pH Gastric Occult Blood Influ A Molecular Assay Influ B Molecular Assay SARS CoV-2 RNA Rapid MARISOL Blood Type A POSITIVE 05/29/23 05/29/23 05/29/23 04:50 05:55 07:40 WBC RBC Hgb Hct MCV MCH MCHC RDW Coeff of Angelica Plt Count Immature Gran % (Auto) Neut % (Auto) Lymph % (Auto) Granite % (Auto) Eos % (Auto) Baso % (Auto) Neut # (Auto) Lymph # (Auto) Granite # (Auto) Eos # (Auto) Baso # (Auto) Immature Gran # (Auto) Puncture Site Lb Lbrach Base Excess 7.1 H 8.0 H O2 Saturation 68.9 L 100.0 H ABG pH 7.28 L* 7.38 ABG pCO2 72.0 H 56.0 H ABG pO2 41.0 L* 449.0 H ABG HCO3 33.8 H 33.1 H ABG Total CO2 36.0 H 34.8 H Daniele Test + + Hemoglobin 0.6 1.0 Oxyhemoglobin 64.6 L 96.6 Carboxyhemoglobin 3.0 H 1.9 H Total Hemoglobin 12.2 15.7 O2 Delivery Device Vapotherm Vent Oxygen Liter Flow FiO2 % 28.0 100.0 Sodium Potassium Chloride Carbon Dioxide Anion Gap BUN Creatinine Estimated GFR (MDRD) BUN/Creatinine Ratio Glucose Calcium Magnesium Total Bilirubin AST ALT Alkaline Phosphatase Total Creatine Kinase Troponin I NT-Pro-B Natriuret Pep Total Protein Albumin Globulin Albumin/Globulin Ratio Lipase TSH Free T4 Gastric Fluid pH 4.0 Gastric Occult Blood Positive Influ A Molecular Assay Influ B Molecular Assay SARS CoV-2 RNA Rapid MARISOL Blood Type Microbiology This Visit 05/28/23 13:16 Throat Group A Strep Molecular Assay - Final Imaging Imaging: EXAM: CHEST RADIOGRAPH IMPRESSION: 1. Possible developing right lower lobe pneumonia with small effusions EXAM: CT ANGIOGRAPHY OF THE CHEST Impression: 1. No evidence of pulmonary artery thrombus 2. Bilateral lower lobe bronchial wall thickening, left greater than right. Endobronchial secretions in the left lower lobe and some consolidative change posteriorly. Correlate for possible pneumonia. 3. Underlying emphysema Review Review Statement: I have independently reviewed and interpreted the labs/EKGs/imaging that were ordered by the ER provider. I have reviewed all outside records that are available currently in our EMR including imaging/notes/labs from previous visits. Plan Reccomendations/Plan: 1. Acute Hypoxic Respiratory Failure in setting of RLL CAP and COPD - Intubated and sedated with propofol at this time, received serial ABGs, solu-medrol 40 mg Q8H, nebs 2. Community Acquired Pneumonia - Started on rocephin and azithromycin, solu-medrol 40 mg Q8H, nebs 3. GI Bleed - Occult vomitus positive, protonix, octreotide bolus and gtt - Did not insert NG/OG due to esophageal varices 4. COPD Contacted [facility], [facility], [facility], and [facility] for transfer. Spoke with Dr. Louie at [facility] which accepted patient under her hospitalist services. Patient transferred for ICU care and GI services. [facility] transferring patient by helicopter. Additional Planning: Case discussed with ED Physician, Dr. Carroll DVT Prophylaxis: Up ad tank upon admission prior to decline, holding due to acti ve bleeding Disposition: FULL code Admit to: Med/Surg Observation Transfer to [facility] Room A405 under care of Dr. Louie Discussed Plan of Care with Dr. Sydney Olivo. If patient discharged with Left Ventricular Systolic Dysfunction: NA Discharged with a beta lolis? [] If no, why not? [] NA Discharged with an domingo/arb? [] If no, why not? [] NA Review With Patient Reviewed with Patient and Family: Patient and family have been counseled on condition and care plan and have no immediate questions. I have personally discussed and reviewed the patient's visit/current labs/imaging/decision making with Dr. Guillermo Olivo, my supervising attending. Total number of minutes spent with patient 85 min. More than 50% of the time spent with this patient was devoted to counseling and coordination of care. Critical care time: 32 minutes Time of Admission:05/28/23 18:43 Time of Discharge: 05/29/23 1100 Discharge Plan Discharge Discharge Orders: Discharge Patient (ONCE); Ordered 05/29/23 Ordered By: MERRY ELIZONDO Patient Disposition: TSF SHORT-TRM HOSP Did you review [place] [employer] for ALL controlled substances?: No Discussed opioids are addictive and Narcan is available by prescription or from pharmacy.: No Condition: Critical Documented by User: NÉSTOR RICKS DO 05/30/23 13:54 Chief Complaint Reason For Visit: PNEUMONIA, FLUID DEFICIT [facility] Medical History Arthritis M19.90 - Unspecified osteoarthritis, unspecified site (ICD-10) CVA (cerebral vascular accident) (~2015) I63.9 - Cerebral infarction, unspecified (ICD-10) Gastroesophageal reflux disease K21.9 - Gastro-esophageal reflux disease without esophagitis (ICD-10) Myocardial infarction (~2015) I21.9 - Acute myocardial infarction, unspecified (ICD-10) Family History SISTER Cancer BROTHER Cancer Social History Smoking and tobacco status: Current every day smoker Allergies Allergies Allergy/AdvReac Type Severity Reaction Status Date / Time No Known Allergies Allergy Verified 05/28/23 19:55 Discharge Plan Discharge Discharge Orders: Discharge Patient (ONCE); Ordered 05/29/23 Ordered By: MERRY ELIZONDO Patient Disposition: TSF SHORT-TRM HOSP Did you review [place] [employer] for ALL controlled substances?: No Discussed opioids are addictive and Narcan is available by prescription or from pharmacy.: No Condition: Critical Procedures Central Line Placement Right IJ: Time Out Performed: Yes Patient Placed on Monitor/Pulse Ox: Yes MD Prep: mask, gown and gloves Central Line Prep: Povidone-Iodine 1% Ultrasound Used for Placement: Yes Central Line Lumen Inserted: triple Post Procedure: sutured in place, good blood return, all ports aspirated, flushed, capped and sterile dressing applied Post Procedure X-Ray: tip of catheter in good position Patient Tolerated Procedure: well Complications: none Additional Comments: r cvc ij NO ACUTE COMPLICATIONS Intubation Time out performed: Yes sedative: none paralytic: Succinylcholine Mg Given: 100 Laryngoscope: Willy Assist Device Used: other ET Tube Size: 7 ET Tube Uncuffed: Yes Tube Secured Depth (cm): 22 Tube Secured Location: lips Tube Placement Confirmation: visualized tube passing through cords, equal breath sounds bilaterally, no breath sounds over epigastrium and confirmation by capno metry Patient Tolerated Procedure: well Intubation Complications: none
[2023-05-29] MEDS ORDERED: LEVOPHED IV SCH (10:15)
[2023-05-29] MEDS ORDERED: ANECTINE IVP STA (10:23)
[2023-05-29 10:32] LABS: HEMATOCRIT 37.3 % (42.0-52.0); HEMOGLOBIN 11.2 g/dl (14.0-18.0)
--- NOTE | 2023-05-29 11:03 | DI ---
EXAM: CHEST RADIOGRAPH TECHNIQUE: Single frontal chest radiograph. HISTORY: Endotracheal tube placement COMPARISON: 05/29/2023 FINDINGS: Endotracheal tube tip above lolita. A right-sided internal jugular line has been installed with its distal tip in the superior vena cava. No pneumothorax. The heart is enlarged. No focal i nfiltrate. Trace left pleural effusion, unchanged. IMPRESSION: 1. IJ in SVC, no pneumothorax. No other interval change.
[2023-05-29 14:37] VITALS: PULSE 113
[2023-05-29] MEDS ORDERED: ZITHROMAX 500 MG in SODIUM CHLORIDE 250 ML IV SCH (21:00)
== END 2023-05-29 11:36 | disposition short-term general hospital (02) | DRG 189 ==
LOC: ED 12:47 → MEDSURG B 18:43
PROVIDERS: ADMIT Hospitalist; ATTEND Nurse Practitioner Family
DX: J44.1 Chronic obstructive pulmonary disease with (acute) exacerbation; R06.02 Shortness of breath; Z86.73 Personal history of transient ischemic attack (TIA), and cerebral infarction without residual deficits; E87.8 Other disorders of electrolyte and fluid balance, not elsewhere classified; K92.2 Gastrointestinal hemorrhage, unspecified; F17.200 Nicotine dependence, unspecified, uncomplicated; J18.9 Pneumonia, unspecified organism; J96.01 Acute respiratory failure with hypoxia; Z51.81 Encounter for therapeutic drug level monitoring; Z79.899 Other long term (current) drug therapy; J44.9 Chronic obstructive pulmonary disease, unspecified

== ENCOUNTER 2024-10-11 22:50 | Inpatient (IN) ==
[2024-10-11] MEDS: DUONEB NEB ONE (23:40)
[2024-10-11 23:47] LABS: BASOPHILS % (AUTO) 0.2 % (0.0-3.0); EOSINOPHILS # (AUTO) 0.2 K/ul (0.0-0.7); EOSINOPHILS % (AUTO) 2.7 % (0.0-7.0); HEMATOCRIT 37.3 % (42.0-52.0); HEMOGLOBIN 10.4 g/dl (14.0-18.0); IMMATURE GRANULOCYTE % (AUTO) 0.5 % (0.0-5.0); LYMPHOCYTES # (AUTO) 0.7 K/uL (0.60-3.4); LYMPHOCYTES % (AUTO) 7.8 (10.0-50.0); MEAN CORPUSCULAR HEMOGLOBIN 24.4 pg (27.0-31.0); MEAN CORPUSCULAR HGB CONC 27.9 (31.8-35.4); MEAN CORPUSCULAR VOLUME 87.6 fl (80.0-94.0); MONOCYTES # (AUTO) 0.7 K/uL (0.4-2.0); MONOCYTES % (AUTO) 7.6 (0-10); NEUTROPHILS # (AUTO) 7.2 K/ul (2.0-6.9); NEUTROPHILS % (AUTO) 81.2 % (42.2-75.2); PLATELET COUNT 316 10^3/uL (140-440); RDW COEFFICIENT OF VARIATION 15.5 % (11.6-14.8); RED BLOOD COUNT 4.26 10^6/ul (4.70-6.10); WHITE BLOOD COUNT 8.83 K/ul (4.2-10.2)
[2024-10-12] LABS: ALANINE AMINOTRANSFERASE 16.7 U/L (0-50); ALBUMIN 4.24 g/dL (3.5-5.0); ASPARTATE AMINO TRANSFERASE 24.7 U/L (17-59); BILIRUBIN,TOTAL 0.31 mg/dL (0.2-1.3); BLOOD UREA NITROGEN 34.9 mg/dL (9-20); CALCIUM 8.9 mg/dL (8.4-10.2); CARBON DIOXIDE 31.9 mmol/L (22-30.0); CHLORIDE 97.7 mmol/L (98-107); CREATININE 1.23 mg/dL (0.60-1.10); GLUCOSE 124.8 mg/dL (74-106); POTASSIUM 4.58 mmol/L (3.5-5.1); SODIUM 138.4 mmol/L (134.5-145); TOTAL PROTEIN 8.25 g/dL (6.3-8.2)
[2024-10-12 00:03] LABS: HYPOCHROMASIA 1+ (NOT PRESENT); MICROCYTOSIS 1+ (NOT PRESENT)
[2024-10-12 00:04] LABS: ANISOCYTOSIS 2+ (NOT PRESENT)
--- NOTE | 2024-10-12 00:11 | DI ---
EXAM: SINGLE VIEW OF THE CHEST. History: Chronic obstructive pulmonary disease Comparison: Chest radiograph 07/08/2024 FINDINGS: Heart size is within normal limits. Right basilar consolidation. No appreciable pleural fluid and no pneumothorax. No acute osseous abnormalities. Atherosclerotic vascular calcifications. Left shoulder arthroplasty hardware. Impression: Right lower lobe pneumonia
[2024-10-12] MEDS: SUBLIMAZE IVP ONE (00:16)
[2024-10-12 00:42] LABS: MOLECULAR FLU A NEGATIVE BY NAAT (NEGATIVE); MOLECULAR FLU B NEGATIVE BY NAAT (NEGATIVE); SARS COV-2 RNA RAPID NAAT NEGATIVE (NEGATIVE)
[2024-10-12] MEDS: ALBUTEROL 0.083% NEB NEB ONE (00:46)
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
[2024-10-12] MEDS: ROCEPHIN 1 GM/50 ML D5W 1 GM/50 ML BAG IV SCH ×2 (01:26→20:21)
[2024-10-12] MEDS ORDERED: ZOFRAN TAB PO PRN (01:45)
[2024-10-12] MEDS: ZITHROMAX 500 MG in SODIUM CHLORIDE 250 ML IV SCH (02:45)
[2024-10-12] MEDS: LACTATED RINGERS 1,000 ML IV ONE (02:56)
[2024-10-12] MEDS: NORCO 5-325 PO PRN (03:05)
[2024-10-12 03:32] VITALS: BMI 36.8
[2024-10-12] MEDS: DUONEB NEB SCH ×2 (05:07→11:26)
[2024-10-12] MEDS: ASPIRIN CHEWABLE PO SCH (08:33)
[2024-10-12] MEDS: BUSPAR PO SCH (08:34)
[2024-10-12] MEDS: MUCINEX PO SCH (08:35)
[2024-10-12] MEDS: NEURONTIN PO SCH (08:36)
[2024-10-12] MEDS: PEPCID PO SCH (08:36)
[2024-10-12] MEDS: PROTONIX PO SCH (08:36)
[2024-10-12] MEDS: SOLU-MEDROL 40 MG IVP SCH ×2 (08:37→16:54)
[2024-10-12] MEDS: LOVENOX SUBCUT SCH (08:46)
[2024-10-12] MEDS: NON-FORMULARY MEDICATION (Budesonide-Glycopyr-Formoterol [Breztri Aerosphere] 160-9-4.8 mc IH SCH (08:59)
[2024-10-12] MEDS ORDERED: DUONEB NEB SCH (09:00)
[2024-10-12] MEDS ORDERED: SPIRIVA IH SCH (09:00)
[2024-10-12] MEDS ORDERED: SYMBICORT 160-4.5 MCG INHALER IH SCH (09:00)
[2024-10-12] MEDS ORDERED: TYLENOL PO PRN (09:04)
--- NOTE | 2024-10-12 09:09 | PCM ---
Date of Service Date Seen by Provider: 10/12/24 Time Seen by Provider: 08:45 Admit Day/Time Admission Date: 10/12/24 Admission Time: 13:40 Reason for Admission Chief Complaint: SOB Hospital Provider Hospital Provider: ALDO LEAL, [facility] [place] Primary Care Physician: ANDREA PERRY History of Present Illness History of Present Illness: 68 yo male with chronic respiratory failure with continuous requirement of 3L of oxygen, COPD, HTN, and TIA presented to the ER from local SNF with complaints of shortness of breath, cough, and body aches. States he has not been feeling well for "quite awhile" and just can't seem to get better. Reports productive cough with yellow brown sputum. Denies fever that he is aware of. Reports aching in hands and feet. Denies n/v/d, chest pain. Found to have RLL pneumonia. Admitted to med/surg observation. Case Discussed With Case Discussed With: Patient's case was discussed with the ER Physicians, Dr. Cole. [facility] Medical History Personal history of transient ischemic attack (TIA), and cerebral infarction without residual deficits Z86.73 - Personal history of transient ischemic attack (TIA), and cerebral infarction without residual deficits (ICD-10) Nausea R11.0 - Nausea (ICD-10) Essential (primary) hypertension I10 - Essential (primary) hypertension (ICD-10) Dyspnea, unspecified R06.00 - Dyspnea, unspecified (ICD-10) Low back pain, unspecified M54.50 - Low back pain, unspecified (ICD-10) Dependence on supplemental oxygen Z99.81 - Dependence on supplemental oxygen (ICD-10) Need for assistance with personal care Z74.1 - Need for assistance with personal care (ICD-10) Gastro-esophageal reflux disease without esophagitis K21.9 - Gastro-esophageal reflux disease without esophagitis (ICD-10) Insomnia, unspecified G47.00 - Insomnia, unspecified (ICD-10) Other abnormalities of gait and mobility R26.89 - Other abnormalities of gait and mobility (ICD-10) Chronic obstructive pulmonary disease, unspecified J44.9 - Chronic obstructive pulmonary disease, unspecified (ICD-10) CVA (cerebral vascular accident) (~2016) I63.9 - Cerebral infarction, unspecified (ICD-10) Gastroesophageal reflux disease K21.9 - Gastro-esophageal reflux disease without esophagitis (ICD-10) Myocardial infarction (~2016) I21.9 - Acute myocardial infarction, unspecified (ICD-10) Arthritis M19.90 - Unspecified osteoarthritis, unspecified site (ICD-10) Family History SISTER Cancer BROTHER Cancer FATHER Cancer Social History Smoking and tobacco status: Current every day smoker Tobacco: How many years used: 37 Allergies Allergies Allergy/AdvReac Type Severity Reaction Status Date / Time No Known Allergies Allergy Verified 10/11/24 22:55 Current Medications Home Medications famotidine 20 mg tablet (Pepcid) 20 mg PO DAILY #30 tabs 08/19/23 [Rx Confirmed 10/12/24 Last Taken 10/11/24] ipratropium 0.5 mg-albuterol 3 mg (2.5 mg base)/3 mL nebulization soln 3 ml inhalation QID soa 08/19/23 [History Confirmed 10/12/24 Last Taken 10/11/24] acetaminophen 500 mg capsule 1,000 mg PO Q8H PRN fever or pain 07/08/24 [History Confirmed 10/12/24 Last Taken Unknown] albuterol sulfate 2.5 mg/3 mL (0.083 %) solution for nebulization 2.5 mg inhalation TID 07/08/24 [History Confirmed 10/12/24 Last Taken 10/11/24] albuterol sulfate 90 mcg/actuation aerosol inhaler 2 inh inhalation Q4H PRN shortness of breath or wheezing 07/08/24 [History Confirmed 10/12/24 Last Taken 10/11/24] aspirin 81 mg chewable tablet 1 tab PO DAILY 07/08/24 [History Confirmed 10/12/24 Last Taken 10/11/24] atorvastatin 40 mg tablet 40 mg PO QPM 07/08/24 [History Confirmed 10/12/24 Last Taken 10/11/24] budesonide 160 mcg-glycopyr 9 mcg-formot 4.8 mcg/actuation HFA inhaler (Breztri Aerosphere) 2 inh inhalation BID 07/08/24 [History Confirmed 10/12/24 Last Taken 10/11/24] buspirone 10 mg tablet 10 mg PO TID 07/08/24 [History Confirmed 10/12/24 Last Taken 10/11/24] gabapentin 100 mg capsule 200 mg PO TID 07/08/24 [History Confirmed 10/12/24 Last Taken 10/11/24] guaifenesin 600 mg tablet, extended release 12 hr (Mucinex) 1,200 mg PO BID 07/08/24 [History Confirmed 10/12/24 Last Taken 10/11/24] melatonin 5 mg tablet 5 mg PO BEDTIME 07/08/24 [History Confirmed 10/12/24 Last Taken 10/10/24] montelukast 10 mg tablet 10 mg PO QPM 07/08/24 [History Confirmed 10/12/24 Last Taken 10/11/24] naproxen 500 mg tablet 500 mg PO BID 07/08/24 [History Confirmed 10/12/24 Last Taken 10/11/24] ondansetron HCl 4 mg tablet 4 mg PO BID PRN nausea and vomiting 07/08/24 [History Confirmed 10/12/24 Last Taken Unknown] pantoprazole 40 mg tablet,delayed release 40 mg PO DAILY 07/08/24 [History Confirmed 10/12/24 Last Taken 10/11/24] sennosides 8.6 mg-docusate sodium 50 mg tablet 2 tab-cap PO DAILY PRN constipation 07/08/24 [History Confirmed 10/12/24 Last Taken 10/11/24] sucralfate 1 gram tablet 1 g PO QID 07/08/24 [History Confirmed 10/12/24 Last Taken 10/11/24] furosemide 40 mg tablet 40 mg PO DAILY 10/11/24 [History Confirmed 10/12/24 Last Taken 10/11/24] tramadol 50 mg tablet 50 mg PO 2XD PRN pain 10/11/24 [History Confirmed 10/12/24 Last Taken Unknown] Home Acetaminophen (Acetaminophen 325 Mg Tablet) 650 mg PO Q4H PRN PRN Reason: Mild Pain Hydrocodone Bitart/Acetaminophen (Hydrocodone Bit/Acetaminophen 5/325 Mg Tablet) 1 tab PO 3-4XD PRN PRN Reason: Severe Pain Last Admin: 10/12/24 08:46 Dose: 1 tab Albuterol Sulfate (Albuterol Sulfate 0.083% Vial.Neb) 2.5 mg NEB Q2-4H PRN PRN Reason: COPD Albuterol/Ipratropium (Ipratropium/Albuterol Vial.Neb) 3 ml NEB RTQ6H [facility] Aspirin (Aspirin 81 Mg Tab.Chew) 81 mg PO DAILYWM2 [facility] Last Admin: 10/12/24 08:33 Dose: 81 mg Atorvastatin Calcium (Atorvastatin Calcium 20 Mg Tablet) 40 mg PO QPM [facility] Budesonide/Formoterol Fumarate (Budesonide/Formoterol Fumarate 160/4.5 Mcg Inhaler) 2 puff IH BID [facility] Buspirone HCl (Buspirone Hcl 10 Mg Tablet) 10 mg PO TID [facility] Last Admin: 10/12/24 08:34 Dose: 10 mg Enoxaparin Sodium (Enoxaparin Sodium 40 Mg/0.4 Ml Syr) 40 mg SUBCUT DAILY [facility] Last Admin: 10/12/24 08:46 Dose: 40 mg Famotidine (Famotidine 20 Mg Tablet) 20 mg PO QDAC2 [facility] Last Admin: 10/12/24 08:36 Dose: 20 mg Gabapentin (Gabapentin 100 Mg Capsule) 200 mg PO TID [facility] Last Admin: 10/12/24 08:36 Dose: 200 mg Guaifenesin (Guaifenesin 600 Mg Tablet.Er) 1,200 mg PO BID [facility] Last Admin: 10/12/24 08:35 Dose: 1,200 mg Azithromycin 500 mg/ Sodium (Chloride) 250 mls @ 83 mls/hr IV DAILY [facility] Stop: 10/15/24 02:59 Last Admin: 10/12/24 02:45 Dose: 83 mls/hr Lactated Ringer's (Lactated Ringers) 1,000 mls @ 100 mls/hr IV .Q10H ONE Stop: 10/12/24 11:43 Last Admin: 10/12/24 02:56 Dose: 100 mls/hr CEFTRIAXONE/D5W 1 GM PREMIX (Rocephin 1 Gm/50 Ml D5w) 1 gm in 50 mls @ 100 mls/hr IV BEDTIME [facility] Stop: 10/15/24 20:59 Melatonin (Melatonin 3 Mg Tablet) 6 mg PO BEDTIME [facility] Methylprednisolone Sodium Succinate (Methylprednisolone Sod Succ/Pf 40 Mg/Ml Vial) 40 mg IVP Q8HR [facility] Montelukast Sodium (Montelukast Sodium 10 Mg Tablet) 10 mg PO QPM [facility] Ondansetron HCl (Ondansetron Hcl 4 Mg Tablet) 4 mg PO BID PRN PRN Reason: vomiting Pantoprazole Sodium (Pantoprazole Sodium 40 Mg Tablet.Dr) 40 mg PO QDAC2 [facility] Last Admin: 10/12/24 08:36 Dose: 40 mg Discontinued Medications Albuterol Sulfate (Albuterol Sulfate 0.083% Vial.Neb) 2.5 mg NEB ONCE ONE Stop: 10/12/24 00:41 Last Admin: 10/12/24 00:46 Dose: 2.5 mg Albuterol/Ipratropium (Ipratropium/Albuterol Vial.Neb) 3 ml NEB ONCE ONE Stop: 10/11/24 23:32 Last Admin: 10/11/24 23:40 Dose: 3 ml Albuterol/Ipratropium (Ipratropium/Albuterol Vial.Neb) 3 ml NEB QID [facility] Albuterol/Ipratropium (Ipratropium/Albuterol Vial.Neb) 3 ml NEB RTQID [facility] Last Admin: 10/12/24 05:07 Dose: 3 ml Budesonide/Formoterol Fumarate (Budesonide/Formoterol Fumarate 160/4.5 Mcg Inhaler) 2 puff IH BID [facility] Fentanyl Citrate (Fentanyl 50 Mcg/Ml Sdv) 50 mcg IVP ONCE ONE Stop: 10/12/24 00:13 Last Admin: 10/12/24 00:16 Dose: 50 mcg CEFTRIAXONE/D5W 1 GM PREMIX (Rocephin 1 Gm/50 Ml D5w) 1 gm in 50 mls @ 100 mls/hr IV DAILY [facility] Stop: 10/15/24 00:59 Last Admin: 10/12/24 01:26 Dose: 100 mls/hr Methylprednisolone Sodium Succinate (Methylprednisolone Sod Succ/Pf 40 Mg/Ml Vial) 80 mg IVP 2XD [facility] Last Admin: 10/12/24 08:37 Dose: 80 mg Non-Formulary Medication (Oozdwxjybv-Lhwjmzap-Gqofrtudnz [Breztri Aerosphere]) 2 inh IH BID [facility] Last Admin: 10/12/24 08:59 Dose: Not Given Tiotropium [place] (Tiotropium [place] 18 Mcg Cap.W.Dev) 1 cap IH DAILY QIUNN Opioid Naive vs. Tolerant What is Opioid Naive?: *Opioid Naive implies the patient is not already taking opioids or not chronically receiving opioids on a daily basis. *PRN dosing is not "usually" associated with tolerance. *Patients are at higher risk of over-sedation and aspiration. What is Opioid Tolerant?: *Opioid Tolerance implies less than the expected response to an opioid. *Acquired tolerance is defined by the patient taking 60mg of oral morphine daily (or equianalgesic dose of another opioid) for 1 week or more. *Often associated with chronic pain. *May take more than usual dose to achieve desired pain control. Review of Systems Constitutional: Reports Other (body aches) Head: Reports Normocephalic Eyes: Reports No symptoms Ears: Reports No symptoms Nose: Reports No symptoms Mouth: Reports No symptoms Throat: Reports No symptoms Cardiovascular: Reports No symptoms Respiratory: Reports Cough (productive, yellow brown sputum) and Shortness of air Gastrointestinal: Reports No symptoms Genitourinary: Reports No Symptoms Musculoskeletal: Reports No symptoms Endocrine: Reports No symptoms Hematology: Reports No symptoms Immunology: Reports No symptoms Neurological: Reports No symptoms Psychiatric: Reports No symptoms Physical examination Most Recent Vital Signs: Most Recent Vital Signs Temperature 97.4 F L 10/12/24 05:29 Temperature Source Temporal Artery Scan 10/12/24 05:29 Temperature Source Oral 10/11/24 22:51 Pulse Rate 101 H 10/12/24 05:29 Respiratory Rate 18 10/12/24 05:29 Blood Pressure 131/84 10/12/24 05:29 Blood Pressure Mean 99 10/12/24 05:29 Blood Pressure Right Arm 152/89 10/12/24 02:36 Blood Pressure Location Right Arm 10/12/24 05:29 Blood Pressure Position Supine 10/12/24 05:29 O2 Sat by Pulse Oximetry 98 10/12/24 05:29 Oxygen Delivery Method Nasal Cannula 10/12/24 09:00 Oxygen Flow Rate 3 10/12/24 05:29 Height 5 ft 9 in 10/12/24 02:36 Weight 113.2 kg 10/12/24 02:36 Telemetry Heart Rate 101 H 05/29/23 07:00 Telemetry SPO2 100 05/29/23 07:00 Appearance: Positive No Apparent Distress and Alert and Oriented x3 Skin: Positive Warm HEENT: Positive Normocephalic and PERRLA Neck: Positive Supple and Midline Trachea Chest/Lungs: Positive Symmetrical With Equal Breath Sounds, Rhonci (RLL) and Other (diminished throughout lung lo) Heart: Positive RRR and Pulses Normal GI/: Positive Soft, Nontender, Bowel Sounds Normal and No Distention Musculoskeletal: Positive Not Examined Extremities: Positive Intact Peripheral Pulses, Stable Joints Without Laxity and Good ROM in All Joints Neurological: Positive Sensation Intact, Motor intact, Alert and Oriented Labs This Visit Labs This Visit: Labs This Visit 10/11/24 10/12/24 10/12/24 23:42 00:19 01:07 WBC 8.83 RBC 4.26 L Hgb 10.4 L Hct 37.3 L MCV 87.6 MCH 24.4 L MCHC 27.9 L RDW Coeff of Angelica 15.5 H Plt Count 316 Immature Gran % (Auto) 0.5 Neut % (Auto) 81.2 H Lymph % (Auto) 7.8 L [place] % (Auto) 7.6 Eos % (Auto) 2.7 Baso % (Auto) 0.2 Neut # (Auto) 7.2 H Lymph # (Auto) 0.7 [place] # (Auto) 0.7 Eos # (Auto) 0.2 Baso # (Auto) 0.0 Immature Gran # (Auto) 0.0 Hypochromasia 1+ Anisocytosis 2+ Microcytosis 1+ Sodium 138.4 Potassium 4.58 Chloride 97.7 L Carbon Dioxide 31.9 H Anion Gap 13.38 BUN 34.9 H Creatinine 1.23 H Estimated GFR (MDRD) 59.00 BUN/Creatinine Ratio 28.37 Glucose 124.8 H Lactic Acid 0.78 Calcium 8.90 Total Bilirubin 0.31 AST 24.7 ALT 16.7 Alkaline Phosphatase 72.0 NT-Pro-B Natriuret Pep 398 H Total Protein 8.25 H Albumin 4.24 Globulin 4.01 Albumin/Globulin Ratio 1.05 Procalcitonin < 0.05 Influ A Molecular Assay Negative by naat Influ B Molecular Assay Negative by naat SARS CoV-2 RNA Rapid MARISOL Negative Imaging Imaging: EXAM: SINGLE VIEW OF THE CHEST. History: Chronic obstructive pulmonary disease Comparison: Chest radiograph 07/08/2024 FINDINGS: Heart size is within normal limits. Right basilar consolidation. No appreciable pleural fluid and no pneumothorax. No acute osseous abnormalities. Atherosclerotic vascular calcifications. Left shoulder arthroplasty hardware. Impression: Right lower lobe pneumonia Review Statement Review Statement: I have independently reviewed and interpreted the labs/EKGs/imaging that were ordered by the ER provider. I have reviewed all outside records that are available currently in our EMR including imaging/notes/labs from previous visits. Plan Plan: 1. RLL Community Acquired Pneumonia - rocephin, azith, steroids, nebs; strep pneumo, legionella, mrsa, and sputum culture ordered 2. COPD - on baseline O2, does not appear in exacerbation, holding home inhaler due to nebs, monitor 3. Hypertension - chronic, continue home medications 4. GERD - chronic, continue home medications 5. Hyperlipidemia - chronic, continue home medications DVT Prophylaxis: Lovenox Time Spent: Greater than 80 minutes spent with patient, 50% of the time spent with this patient was devoted to counseling and coordination of care. [facility]in minutes spent discussing advance care planning. Disposition: Admit to: Med/Surg Observation Full Code Discussed Plan of Care with Dr. Sydney Olivo. Medications Medication Orders: Medications Ordered Category Date Time Status Acetaminophen [Tylenol] Meds 10/12/24 09:04 Active 650 mg PO Q4H PRN Albuterol Sulfate 0.083% Neb [Albuterol 0.083% Neb] Meds 10/12/24 01:39 Active 2.5 mg NEB Q2-4H PRN Aspirin [Aspirin Chewable] Meds 10/12/24 07:30 Active 81 mg PO DAILYWM2 Atorvastatin Calcium [Lipitor] Meds 10/12/24 17:00 Active 40 mg PO QPM Azithromycin Inj [Zithromax] 500 mg Meds 10/12/24 03:00 Active 0.9 % Sodium Chloride [Sodium Chloride] 250 ml IV DAILY Budesonide/Formoterol Fumarate [Symbicort 160-4.5 Mcg Meds 10/12/24 09:30 Active Inhaler] 2 puff IH BID Buspirone HCl [Buspar] Meds 10/12/24 09:00 Active 10 mg PO TID Ceftriaxone/D5w 1 gm Premix [Rocephin 1 gm/50 ml D5w] Meds 10/12/24 21:00 Active 1 gm in 50 ml IV BEDTIME Enoxaparin Sodium [Lovenox] Meds 10/12/24 09:00 Active 40 mg SUBCUT DAILY Famotidine [Pepcid] Meds 10/12/24 09:00 Active 20 mg PO QDAC2 Gabapentin [Neurontin] Meds 10/12/24 09:00 Active 200 mg PO TID Guaifenesin [Mucinex] Meds 10/12/24 09:00 Active 1,200 mg PO BID Hydrocodone Bit/Acetaminophen [[place] 5-325] Meds 10/12/24 01:58 Active 1 tab PO 3-4XD PRN Ipratropium/Albuterol Neb [Duoneb] Meds 10/12/24 12:00 Active 3 ml NEB RTQ6H Melatonin Meds 10/12/24 21:00 Active 6 mg PO BEDTIME Methylprednisolone Sod Succ/Pf [Solu-Medrol 40 mg] Meds 10/12/24 17:00 Active 40 mg IVP Q8HR Montelukast Sodium [Singulair] Meds 10/12/24 17:00 Active 10 mg PO QPM Ondansetron HCl [Zofran Tab] Meds 10/12/24 01:45 Active 4 mg PO BID PRN Pantoprazole Sodium [Protonix] Meds 10/12/24 09:00 Active 40 mg PO QDAC2 Ringers Lactated Solution [Lactated Ringers] 1,000 ml Meds 10/12/24 01:44 Active IV 100 mls/hr
[2024-10-12] MEDS: SYMBICORT 160-4.5 MCG INHALER IH SCH (10:16)
[2024-10-12] MEDS: LIPITOR PO SCH (16:53)
[2024-10-12] MEDS: SINGULAIR PO SCH (16:53)
[2024-10-12] MEDS: MELATONIN PO SCH (20:24)
[2024-10-12] MEDS: ALBUTEROL 0.083% NEB NEB PRN (20:25)
[2024-10-13] MEDS: XANAX PO STA (04:10)
[2024-10-13 05:36] LABS: HEMATOCRIT 35.5 % (42.0-52.0); HEMOGLOBIN 9.7 g/dl (14.0-18.0); IMMATURE GRANULOCYTE # (AUTO) 0.1 (0.0-1.0); IMMATURE GRANULOCYTE % (AUTO) 0.4 % (0.0-5.0); LYMPHOCYTES # (AUTO) 0.2 K/uL (0.60-3.4); LYMPHOCYTES % (AUTO) 1.1 (10.0-50.0); MEAN CORPUSCULAR HEMOGLOBIN 24.3 pg (27.0-31.0); MEAN CORPUSCULAR HGB CONC 27.3 (31.8-35.4); MEAN CORPUSCULAR VOLUME 88.8 fl (80.0-94.0); MONOCYTES # (AUTO) 0.9 K/uL (0.4-2.0); MONOCYTES % (AUTO) 4.3 (0-10); NEUTROPHILS # (AUTO) 19.2 K/ul (2.0-6.9); NEUTROPHILS % (AUTO) 94.2 % (42.2-75.2); PLATELET COUNT 282 10^3/uL (140-440); RDW COEFFICIENT OF VARIATION 14.9 % (11.6-14.8)
[2024-10-13 05:49] LABS: WHITE BLOOD COUNT 20.41 K/ul (4.2-10.2)
[2024-10-13 06:02] LABS: ALBUMIN 3.8 g/dL (3.5-5.0); BILIRUBIN,TOTAL 0.3 mg/dL (0.2-1.3); CALCIUM 8.5 mg/dL (8.4-10.2); CREATININE 0.9 mg/dL (0.60-1.10); POTASSIUM 5.1 mmol/L (3.5-5.1); TOTAL PROTEIN 7.2 g/dL (6.3-8.2)
[2024-10-13 06:06] LABS: ANISOCYTOSIS 1+ (NOT PRESENT); HYPOCHROMASIA 1+ (NOT PRESENT)
--- NOTE | 2024-10-13 09:28 | PCM.PROG ---
Date/Time Seen Date Seen by Provider: 10/13/24 Time Seen by Provider: 09:00 Provider Provider: ALDO LEAL, [facility] Chief Complaint Chief Complaint: SOB Subjective Subjective: Had episodes of shortness of breath last night and required breathing treatments. Still having some conversational shortness of breath. States he has been weighing around 230 at [facility] and is 249 here. Objective Appearance: Positive No Apparent Distress, Alert and Oriented x3 and Ill- Appearing Chest/Lungs: Positive Symmetrical With Equal Breath Sounds, Wheezes and Other (faint crackles at lung bases) Heart: Positive RRR and Pulses Normal GI/: Positive Soft, Nontender, Bowel Sounds Normal and No Distention Musculoskeletal: Positive Not Examined Neurological: Positive Sensation Intact, Motor intact, Alert and Oriented Vital Signs Vital Signs: Vital Signs: Last 24 Hours 10/12/24 10:00 10/12/24 10:00 10/12/24 10:00 Temperature 98.2 F Temperature Source Temporal Artery Scan Pulse Rate 100 Respiratory Rate 22 H Blood Pressure 136/87 Blood Pressure Mean 103 Blood Pressure Location Right Arm Blood Pressure Position Supine O2 Sat by Pulse Oximetry 95 94 L Oxygen Delivery Method Nasal Cannula Nasal Cannula Nasal Cannula Oxygen Flow Rate 3 3 10/12/24 11:00 10/12/24 12:00 10/12/24 12:54 Temperature Temperature Source Pulse Rate Respiratory Rate Blood Pressure Blood Pressure Mean Blood Pressure Location Blood Pressure Position O2 Sat by Pulse Oximetry Oxygen Delivery Method Nasal Cannula Nasal Cannula Nasal Cannula Oxygen Flow Rate 10/12/24 14:00 10/12/24 14:00 10/12/24 14:00 Temperature 98.5 F Temperature Source Temporal Artery Scan Pulse Rate 107 H Respiratory Rate 20 Blood Pressure 136/86 Blood Pressure Mean 102 Blood Pressure Location Left Arm Blood Pressure Position Supine O2 Sat by Pulse Oximetry 94 L Oxygen Delivery Method Nasal Cannula Nasal Cannula Nasal Cannula Oxygen Flow Rate 3 3 10/12/24 14:51 10/12/24 16:00 10/12/24 17:00 Temperature Temperature Source Pulse Rate Respiratory Rate Blood Pressure Blood Pressure Mean Blood Pressure Location Blood Pressure Position O2 Sat by Pulse Oximetry Oxygen Delivery Method Nasal Cannula Nasal Cannula Nasal Cannula Oxygen Flow Rate 10/12/24 17:55 10/12/24 17:55 10/12/24 19:00 Temperature 98.3 F Temperature Source Temporal Artery Scan Pulse Rate 100 Respiratory Rate 20 Blood Pressure 142/89 H Blood Pressure Mean 106 Blood Pressure Location Left Arm Blood Pressure Position Sitting O2 Sat by Pulse Oximetry 97 Oxygen Delivery Method Nasal Cannula Nasal Cannula Nasal Cannula Oxygen Flow Rate 3 10/12/24 19:35 10/12/24 20:00 10/12/24 20:00 Temperature Temperature Source Pulse Rate Respiratory Rate Blood Pressure Blood Pressure Mean Blood Pressure Location Blood Pressure Position O2 Sat by Pulse Oximetry 95 Oxygen Delivery Method Nasal Cannula Nasal Cannula Nasal Cannula Oxygen Flow Rate 3 3 10/12/24 21:00 10/12/24 21:58 10/12/24 22:00 Temperature 97.1 F L Temperature Source Temporal Artery Scan Pulse Rate 88 Respiratory Rate 20 Blood Pressure 131/72 Blood Pressure Mean 91 Blood Pressure Location Right Arm Blood Pressure Position Supine O2 Sat by Pulse Oximetry 93 L Oxygen Delivery Method Nasal Cannula Nasal Cannula Nasal Cannula Oxygen Flow Rate 3 10/12/24 23:00 10/13/24 00:00 10/13/24 01:00 Temperature Temperature Source Pulse Rate Respiratory Rate Blood Pressure Blood Pressure Mean Blood Pressure Location Blood Pressure Position O2 Sat by Pulse Oximetry Oxygen Delivery Method Nasal Cannula Nasal Cannula Nasal Cannula Oxygen Flow Rate 10/13/24 02:00 10/13/24 02:00 10/13/24 03:00 Temperature 97.4 F L Temperature Source Temporal Artery Scan Pulse Rate 119 H Respiratory Rate 28 H Blood Pressure 146/74 H Blood Pressure Mean 98 Blood Pressure Location Left Arm Blood Pressure Position Supine O2 Sat by Pulse Oximetry 89 L Oxygen Delivery Method Nasal Cannula Nasal Cannula Nasal Cannula Oxygen Flow Rate 3 10/13/24 04:00 10/13/24 05:00 10/13/24 05:29 Temperature Temperature Source Pulse Rate Respiratory Rate Blood Pressure Blood Pressure Mean Blood Pressure Location Blood Pressure Position O2 Sat by Pulse Oximetry 94 L Oxygen Delivery Method Nasal Cannula Nasal Cannula Nasal Cannula Oxygen Flow Rate 4 10/13/24 05:34 10/13/24 06:00 10/13/24 07:00 Temperature 97.4 F L Temperature Source Temporal Artery Scan Pulse Rate 106 H Respiratory Rate 24 H Blood Pressure 149/83 H Blood Pressure Mean 105 Blood Pressure Location Left Arm Blood Pressure Position O2 Sat by Pulse Oximetry 95 Oxygen Delivery Method Nasal Cannula Nasal Cannula Nasal Cannula Oxygen Flow Rate 3.5 10/13/24 08:00 Temperature Temperature Source Pulse Rate Respiratory Rate Blood Pressure Blood Pressure Mean Blood Pressure Location Blood Pressure Position O2 Sat by Pulse Oximetry Oxygen Delivery Method Nasal Cannula Oxygen Flow Rate Lab Results Lab Results: Lab Results: Last 24 Hours 10/13/24 05:22 WBC 20.41 H D RBC 4.00 L Hgb 9.7 L Hct 35.5 L MCV 88.8 MCH 24.3 L MCHC 27.3 L RDW Coeff of Angelica 14.9 H Plt Count 282 Immature Gran % (Auto) 0.4 Neut % (Auto) 94.2 H Lymph % (Auto) 1.1 L [place] % (Auto) 4.3 Eos % (Auto) 0.0 Baso % (Auto) 0.0 Neut # (Auto) 19.2 H Lymph # (Auto) 0.2 L [place] # (Auto) 0.9 Eos # (Auto) 0.0 Baso # (Auto) 0.0 Immature Gran # (Auto) 0.1 Hypochromasia 1+ Anisocytosis 1+ Sodium 137.0 Potassium 5.10 Chloride 101.0 Carbon Dioxide 33.0 H Anion Gap 8.10 BUN 29.0 H Creatinine 0.90 Estimated GFR (MDRD) 84.00 BUN/Creatinine Ratio 32.22 Glucose 178.0 H Calcium 8.50 Total Bilirubin 0.30 AST 23.0 ALT 16.0 Alkaline Phosphatase 79.0 Total Protein 7.20 Albumin 3.80 Globulin 3.40 Albumin/Globulin Ratio 1.11 Additional Comments Additional Comments: I have independently reviewed and interpreted the labs/EKGs/imaging ordered during this hospital stay. I have reviewed outside records that are available in our EMR that pertain to medical stay including imaging/notes/labs from previous visits. Active Medications Active Medications: Medications Generic Name Dose Route Start Last Admin Trade Name Josselyn PRN Reason Stop Dose Admin Acetaminophen 650 mg 10/12/24 09:04 Acetaminophen 325 Mg Tablet PO Q4H PRN Mild Pain Hydrocodone Bitart/Acetaminophen 1 tab 10/13/24 08:34 Hydrocodone Bit/Acetaminophen 5/325 Mg Tablet PO Q4-6H PRN Severe Pain Albuterol Sulfate 2.5 mg 10/12/24 01:39 10/13/24 02:10 Albuterol Sulfate 0.083% Vial.Neb NEB 2.5 mg Q2-4H PRN Administration COPD Albuterol/Ipratropium 3 ml 10/12/24 12:00 10/13/24 05:31 Ipratropium/Albuterol Vial.Neb NEB 3 ml RTQ6H QUINN Administration Aspirin 81 mg 10/12/24 07:30 10/13/24 07:26 Aspirin 81 Mg Tab.Chew PO 81 mg DAILYWM2 QUINN Administration Atorvastatin Calcium 40 mg 10/12/24 17:00 10/12/24 16:53 Atorvastatin Calcium 20 Mg Tablet PO 40 mg QPM QUINN Administration Budesonide/Formoterol Fumarate 2 puff 10/12/24 09:30 10/12/24 20:22 Budesonide/Formoterol Fumarate 160/4.5 Mcg Inhaler IH 2 puff BID QUINN Administration Buspirone HCl 10 mg 10/12/24 09:00 10/13/24 08:37 Buspirone Hcl 10 Mg Tablet PO 10 mg TID QUINN Administration Enoxaparin Sodium 40 mg 10/12/24 09:00 10/13/24 08:36 Enoxaparin Sodium 40 Mg/0.4 Ml Syr SUBCUT 40 mg DAILY QUINN Administration Famotidine 20 mg 10/12/24 09:00 10/13/24 05:07 Famotidine 20 Mg Tablet PO 20 mg QDAC2 QUINN Administration Furosemide 40 mg 10/13/24 09:21 Furosemide Inj 40 Mg/4 Ml Vial IVP 10/13/24 09:22 ONCE ONE Gabapentin 200 mg 10/12/24 09:00 10/13/24 08:36 Gabapentin 100 Mg Capsule PO 200 mg TID QUINN Administration Guaifenesin 1,200 mg 10/12/24 09:00 10/13/24 08:36 Guaifenesin 600 Mg Tablet.Er PO 1,200 mg BID QUINN Administration Azithromycin 500 mg/ Sodium 250 mls @ 83 mls/hr 10/12/24 03:00 10/13/24 08:35 Chloride IV 10/15/24 02:59 83 mls/hr DAILY QUINN Administration CEFTRIAXONE/D5W 1 GM PREMIX 1 gm in 50 mls @ 100 mls/hr 10/12/24 21:00 10/12/24 20:21 Rocephin 1 Gm/50 Ml D5w IV 10/15/24 20:59 100 mls/hr BEDTIME QUINN Administration Melatonin 6 mg 10/12/24 21:00 10/12/24 20:24 Melatonin 3 Mg Tablet PO 6 mg BEDTIME QUINN Administration Methylprednisolone Sodium Succinate 40 mg 10/12/24 17:00 10/13/24 04:03 Methylprednisolone Sod Succ/Pf 40 Mg/Ml Vial IVP 40 mg Q8HR QUINN Administration Montelukast Sodium 10 mg 10/12/24 17:00 10/12/24 16:53 Montelukast Sodium 10 Mg Tablet PO 10 mg QPM QUINN Administration Ondansetron HCl 4 mg 10/12/24 01:45 Ondansetron Hcl 4 Mg Tablet PO BID PRN vomiting Pantoprazole Sodium 40 mg 10/12/24 09:00 10/13/24 05:07 Pantoprazole Sodium 40 Mg Tablet. PO 40 mg QDAC2 QUINN Administration Sodium Chloride 1 syr 10/12/24 21:00 10/13/24 04:03 0.9% Sodium Chloride 10 Ml Disp.Syrin IVF 1 syr Q8HR QUINN Administration Plan Plan: 1. RLL Community Acquired Pneumonia - rocephin, azith, steroids, nebs; strep pneumo, legionella, mrsa, and sputum culture ordered 2. COPD - on baseline O2, does not appear in exacerbation, holding home inhaler due to nebs, monitor 3. Hypertension - chronic, continue home medications 4. GERD - chronic, continue home medications 5. Hyperlipidemia - chronic, continue home medications 6. Fluid retention - crackles at lung bases mild edema present, lasix 40 mg x1 - monitor if symptoms improve Review Statement Review Statement: I have personally discussed and reviewed the patient's visit/currently labs/imaging/decision making with Dr. Olivo, my supervising attending. Greater that 50 minutes spent with patient, 50% of the time spent with this patient was devoted to counseling and coordination of care.
[2024-10-13] MEDS: LASIX IVP ONE (09:47)
[2024-10-13] MEDS: NORCO 5-325 PO PRN (12:38)
[2024-10-13] MEDS: XANAX PO PRN (22:52)
[2024-10-14] MEDS: XANAX PO ONE (03:50)
[2024-10-14 05:05] LABS: BASOPHILS % (AUTO) 0.1 % (0.0-3.0); HEMATOCRIT 35.2 % (42.0-52.0); HEMOGLOBIN 9.5 g/dl (14.0-18.0); IMMATURE GRANULOCYTE # (AUTO) 0.2 (0.0-1.0); IMMATURE GRANULOCYTE % (AUTO) 1.6 % (0.0-5.0); LYMPHOCYTES # (AUTO) 0.3 K/uL (0.60-3.4); LYMPHOCYTES % (AUTO) 1.7 (10.0-50.0); MEAN CORPUSCULAR HEMOGLOBIN 24.5 pg (27.0-31.0); MEAN CORPUSCULAR VOLUME 90.7 fl (80.0-94.0); MONOCYTES # (AUTO) 0.6 K/uL (0.4-2.0); NEUTROPHILS # (AUTO) 13.3 K/ul (2.0-6.9); NEUTROPHILS % (AUTO) 92.6 % (42.2-75.2); PLATELET COUNT 290 10^3/uL (140-440); RDW COEFFICIENT OF VARIATION 15.2 % (11.6-14.8); RED BLOOD COUNT 3.88 10^6/ul (4.70-6.10)
[2024-10-14 05:22] LABS: ALBUMIN 3.8 g/dL (3.5-5.0); BILIRUBIN,TOTAL 0.2 mg/dL (0.2-1.3); CALCIUM 8.6 mg/dL (8.4-10.2); CREATININE 1.1 mg/dL (0.60-1.10); POTASSIUM 5.1 mmol/L (3.5-5.1); TOTAL PROTEIN 7.2 g/dL (6.3-8.2)
[2024-10-14 05:28] LABS: WHITE BLOOD COUNT 14.38 K/ul (4.2-10.2)
[2024-10-14 05:56] LABS: ANISOCYTOSIS OCCASIONAL (NOT PRESENT); HYPOCHROMASIA OCCASIONAL (NOT PRESENT)
--- NOTE | 2024-10-14 08:28 | PCM.PROG ---
Date/Time Seen Date Seen by Provider: 10/14/24 Time Seen by Provider: 07:45 Provider [facility] Chief Complaint Chief Complaint: SOB Subjective Subjective: Episodes of tachycardia occurred throughout the night with worsening shortness of breath. HR up to upper 120s. Pale and mild distress this am with abdominal breathing present Objective Appearance: Positive Alert and Oriented x3, Ill-Appearing and Obese Chest/Lungs: Positive Symmetrical With Equal Breath Sounds, Rhonci and Wheezes Heart: Positive Pulses Normal and Tachycardia GI/: Positive Soft, Nontender, Bowel Sounds Normal, No Distention and No Organomegaly Musculoskeletal: Positive Not Examined Neurological: Positive Sensation Intact, Motor intact, Alert and Oriented Vital Signs Vital Signs: Vital Signs: Last 24 Hours 10/13/24 09:00 10/13/24 09:39 10/13/24 10:00 Temperature 98.3 F Temperature Source Temporal Artery Scan Pulse Rate 108 H Pulse Rate [Apical] Respiratory Rate 20 Blood Pressure 147/83 H Blood Pressure Mean 104 Blood Pressure Location Right Arm Blood Pressure Position Supine O2 Sat by Pulse Oximetry 92 L Oxygen Delivery Method Nasal Cannula Nasal Cannula Nasal Cannula Oxygen Flow Rate Height Weight 10/13/24 10:00 10/13/24 10:42 10/13/24 10:50 Temperature Temperature Source Pulse Rate Pulse Rate [Apical] Respiratory Rate Blood Pressure Blood Pressure Mean Blood Pressure Location Blood Pressure Position O2 Sat by Pulse Oximetry 91 L Oxygen Delivery Method Nasal Cannula Nasal Cannula Oxygen Flow Rate 3 Height 5 ft 9 in Weight 113.2 kg 10/13/24 11:00 10/13/24 12:00 10/13/24 13:00 Temperature Temperature Source Pulse Rate Pulse Rate [Apical] Respiratory Rate Blood Pressure Blood Pressure Mean Blood Pressure Location Blood Pressure Position O2 Sat by Pulse Oximetry Oxygen Delivery Method Nasal Cannula Nasal Cannula Nasal Cannula Oxygen Flow Rate Height Weight 10/13/24 14:00 10/13/24 14:00 10/13/24 14:00 Temperature 97.5 F L Temperature Source Temporal Artery Scan Pulse Rate 113 H Pulse Rate [Apical] Respiratory Rate 20 Blood Pressure 117/70 Blood Pressure Mean 85 Blood Pressure Location Blood Pressure Position O2 Sat by Pulse Oximetry 99 92 L Oxygen Delivery Method Nasal Cannula Nasal Cannula Nasal Cannula Oxygen Flow Rate 3 3 Height Weight 10/13/24 15:00 10/13/24 16:00 10/13/24 17:00 Temperature Temperature Source Pulse Rate Pulse Rate [Apical] Respiratory Rate Blood Pressure Blood Pressure Mean Blood Pressure Location Blood Pressure Position O2 Sat by Pulse Oximetry Oxygen Delivery Method Nasal Cannula Nasal Cannula Nasal Cannula Oxygen Flow Rate Height Weight 10/13/24 18:00 10/13/24 18:00 10/13/24 19:00 Temperature 97.7 F Temperature Source Temporal Artery Scan Pulse Rate 113 H Pulse Rate [Apical] Respiratory Rate 26 H Blood Pressure 137/79 Blood Pressure Mean 98 Blood Pressure Location Right Arm Blood Pressure Position Sitting O2 Sat by Pulse Oximetry 92 L Oxygen Delivery Method Nasal Cannula Nasal Cannula Nasal Cannula Oxygen Flow Rate 3 Height Weight 10/13/24 19:20 10/13/24 19:50 10/13/24 20:00 Temperature Temperature Source Pulse Rate Pulse Rate [Apical] 107 H Respiratory Rate 24 H Blood Pressure Blood Pressure Mean Blood Pressure Location Blood Pressure Position O2 Sat by Pulse Oximetry 92 L Oxygen Delivery Method Nasal Cannula Nasal Cannula Nasal Cannula Oxygen Flow Rate 3 3 Height Weight 10/13/24 21:00 10/13/24 21:23 10/13/24 21:48 Temperature 98.5 F Temperature Source Tympanic Pulse Rate 106 H Pulse Rate [Apical] Respiratory Rate 18 Blood Pressure 123/89 Blood Pressure Mean 100 Blood Pressure Location Left Arm Blood Pressure Position Sitting O2 Sat by Pulse Oximetry 88 L Oxygen Delivery Method Nasal Cannula Nasal Cannula Nasal Cannula Oxygen Flow Rate Height Weight 10/13/24 22:54 10/13/24 23:54 10/14/24 00:58 Temperature Temperature Source Pulse Rate Pulse Rate [Apical] Respiratory Rate Blood Pressure Blood Pressure Mean Blood Pressure Location Blood Pressure Position O2 Sat by Pulse Oximetry Oxygen Delivery Method Nasal Cannula Nasal Cannula Nasal Cannula Oxygen Flow Rate Height Weight 10/14/24 01:30 10/14/24 01:57 10/14/24 02:51 Temperature 97.8 F Temperature Source Tympanic Pulse Rate 115 H Pulse Rate [Apical] Respiratory Rate 19 Blood Pressure 131/93 H Blood Pressure Mean 105 Blood Pressure Location Right Arm Blood Pressure Position Sitting O2 Sat by Pulse Oximetry 94 L Oxygen Delivery Method Nasal Cannula Nasal Cannula Room Air Oxygen Flow Rate Height Weight 10/14/24 03:54 10/14/24 04:45 10/14/24 05:27 Temperature 96.6 F L Temperature Source Tympanic Pulse Rate 125 H Pulse Rate [Apical] Respiratory Rate 26 H Blood Pressure 164/96 H Blood Pressure Mean 118 Blood Pressure Location Right Arm Blood Pressure Position Supine O2 Sat by Pulse Oximetry 93 L Oxygen Delivery Method Room Air Room Air Nasal Cannula Oxygen Flow Rate Height Weight 10/14/24 05:41 10/14/24 05:46 10/14/24 07:00 Temperature Temperature Source Pulse Rate Pulse Rate [Apical] Respiratory Rate Blood Pressure Blood Pressure Mean Blood Pressure Location Blood Pressure Position O2 Sat by Pulse Oximetry Oxygen Delivery Method Nasal Cannula Nasal Cannula Nasal Cannula Oxygen Flow Rate 3 Height Weight Lab Results Lab Results: Lab Results: Last 24 Hours 10/14/24 04:45 WBC 14.38 H D RBC 3.88 L Hgb 9.5 L Hct 35.2 L MCV 90.7 MCH 24.5 L MCHC 27.0 L RDW Coeff of Angelica 15.2 H Plt Count 290 Immature Gran % (Auto) 1.6 Neut % (Auto) 92.6 H Lymph % (Auto) 1.7 L [place] % (Auto) 4.0 Eos % (Auto) 0.0 Baso % (Auto) 0.1 Neut # (Auto) 13.3 H Lymph # (Auto) 0.3 L [place] # (Auto) 0.6 Eos # (Auto) 0.0 Baso # (Auto) 0.0 Immature Gran # (Auto) 0.2 Hypochromasia Occasional Anisocytosis Occasional Sodium 140.0 Potassium 5.10 Chloride 99.0 Carbon Dioxide 38.0 H Anion Gap 8.10 BUN 34.0 H Creatinine 1.10 Estimated GFR (MDRD) 67.00 BUN/Creatinine Ratio 30.90 Glucose 175.0 H Calcium 8.60 Total Bilirubin 0.20 AST 26.0 ALT 16.0 Alkaline Phosphatase 71.0 Total Protein 7.20 Albumin 3.80 Globulin 3.40 Albumin/Globulin Ratio 1.11 Additional Comments Additional Comments: I have independently reviewed and interpreted the labs/EKGs/imaging ordered during this hospital stay. I have reviewed outside records that are available in our EMR that pertain to medical stay including imaging/notes/labs from previous visits. Active Medications Active Medications: Medications Generic Name Dose Route Start Last Admin Trade Name Freq PRN Reason Stop Dose Admin Acetaminophen 650 mg 10/12/24 09:04 Acetaminophen 325 Mg Tablet PO Q4H PRN Mild Pain Hydrocodone Bitart/Acetaminophen 1 tab 10/13/24 08:34 10/14/24 01:16 Hydrocodone Bit/Acetaminophen 5/325 Mg Tablet PO 1 tab Q4-6H PRN Administration Severe Pain Albuterol Sulfate 2.5 mg 10/12/24 01:39 10/14/24 03:35 Albuterol Sulfate 0.083% Vial.Neb NEB 2.5 mg Q2-4H PRN Administration COPD Albuterol/Ipratropium 3 ml 10/12/24 12:00 10/14/24 05:43 Ipratropium/Albuterol Vial.Neb NEB 3 ml RTQ6H QUINN Administration Alprazolam 0.5 mg 10/13/24 20:10 10/13/24 22:52 Alprazolam 0.5 Mg Tablet PO 0.5 mg BEDTIME PRN Administration Anxiety Aspirin 81 mg 10/12/24 07:30 10/13/24 07:26 Aspirin 81 Mg Tab.Chew PO 81 mg DAILYWM2 QUINN Administration Atorvastatin Calcium 40 mg 10/12/24 17:00 10/13/24 16:48 Atorvastatin Calcium 20 Mg Tablet PO 40 mg QPM QUINN Administration Budesonide/Formoterol Fumarate 2 puff 10/12/24 09:30 10/13/24 20:13 Budesonide/Formoterol Fumarate 160/4.5 Mcg Inhaler IH 2 puff BID QUINN Administration Buspirone HCl 10 mg 10/12/24 09:00 10/13/24 20:14 Buspirone Hcl 10 Mg Tablet PO 10 mg TID QUINN Administration Enoxaparin Sodium 40 mg 10/12/24 09:00 10/13/24 08:36 Enoxaparin Sodium 40 Mg/0.4 Ml Syr SUBCUT 40 mg DAILY QUINN Administration Famotidine 20 mg 10/12/24 09:00 10/14/24 05:10 Famotidine 20 Mg Tablet PO 20 mg QDAC2 QUINN Administration Gabapentin 200 mg 10/12/24 09:00 10/13/24 20:13 Gabapentin 100 Mg Capsule PO 200 mg TID QUINN Administration Guaifenesin 1,200 mg 10/12/24 09:00 10/13/24 20:13 Guaifenesin 600 Mg Tablet.Er PO 1,200 mg BID QUINN Administration Azithromycin 500 mg/ Sodium 250 mls @ 83 mls/hr 10/12/24 03:00 10/13/24 13:17 Chloride IV 10/15/24 02:59 Not Given DAILY QUINN CEFTRIAXONE/D5W 1 GM PREMIX 1 gm in 50 mls @ 100 mls/hr 10/12/24 21:00 10/13/24 20:13 Rocephin 1 Gm/50 Ml D5w IV 10/15/24 20:59 100 mls/hr BEDTIME QUINN Administration Melatonin 6 mg 10/12/24 21:00 10/13/24 20:14 Melatonin 3 Mg Tablet PO 6 mg BEDTIME QUINN Administration Methylprednisolone Sodium Succinate 40 mg 10/12/24 17:00 10/14/24 05:09 Methylprednisolone Sod Succ/Pf 40 Mg/Ml Vial IVP 40 mg Q8HR QUINN Administration Montelukast Sodium 10 mg 10/12/24 17:00 10/13/24 16:47 Montelukast Sodium 10 Mg Tablet PO 10 mg QPM QUINN Administration Ondansetron HCl 4 mg 10/12/24 01:45 Ondansetron Hcl 4 Mg Tablet PO BID PRN vomiting Pantoprazole Sodium 40 mg 10/12/24 09:00 10/14/24 05:14 Pantoprazole Sodium 40 Mg Tablet. PO 40 mg QDAC2 QUINN Administration Sodium Chloride 1 syr 10/12/24 21:00 10/14/24 05:10 0.9% Sodium Chloride 10 Ml Disp.Syrin IVF 1 syr Q8HR QUINN Administration Plan Plan: 1. Acute on Chronic Respiratory Failure in setting of RLL CAP and COPD - serial abgs, nebs, wean bipap as tolerated 2. RLL Community Acquired Pneumonia - rocephin, azith, steroids, nebs; strep pneumo, legionella, mrsa, and sputum culture ordered; sputum showing growth of gram pos cocci - awaiting final report, CTA completed and negative for PE 3. COPD - requiring bipap at this time, wheezing present on exam today, will add further nebs, holding home inhaler due to nebs, monitor 4. Hypertension - chronic, continue home medications 5. GERD - chronic, continue home medications 6. Hyperlipidemia - chronic, continue home medications 7. Fluid retention - Resolved Review Statement Review Statement: I have personally discussed and reviewed the patient's visit/currently labs/imaging/decision making with Dr. Olivo, my supervising attending. Greater that 50 minutes spent with patient, 50% of the time spent with this patient was devoted to counseling and coordination of care.
[2024-10-14 08:32] LABS: BEecf 12.3 (-2.0-3.0); COHb 1.8 (0.5-1.5); HCO3 40.5 (21-28); MetHb 1.8 (0-1.5); TCO2 43.8 (19-24); sO2 53.9 % (94-98)
[2024-10-14 08:36] LABS: ABG PH 7.19 (7.35-7.45)
[2024-10-14] MEDS: OMNIPAQUE 350 MG/ML 100ML IVP ONE (08:55)
--- NOTE | 2024-10-14 09:47 | CT ---
EXAM: CHEST CTA WITH CONTRAST (PULMONARY ARTERY) HISTORY: Tachycardia and shortness of breath. TECHNIQUE: CTA acquisition of the chest from the thoracic inlet to the upper abdomen following IV con trast administration timed to filling of the pulmonary artery. IV Contrast: 100 mL of Omnipaque 350 administered. 3D/MIP/VR images were utilized. CT Dose Reduction Techniques Employed: Yes. COMPARISON: 05/30/2023. The FINDINGS: Status post left shoulder arthroplasty. Streak artifact related to the shoulder prosthesis, and ermias fact related to patient motion limits interpretation No intraluminal filling defect is seen within the main pulmonary artery or its major segmental branch es to suggest pulmonary embolism A mild, ill-defined consolidative infiltrate is demonstrated in the right lower lobe. There is mild infiltrate is demonstrated in the right middle lobe Features of pulmonary emphysema appear moderate to moderately severe Negative for significant pleural or pericardial effusion Negative for focal aneurysm, intimal dissection, or mural disruption involving the thoracic aorta Atherosclerotic calcifications are demonstrated throughout the visualized arterial structures, includ ing the big sandy coronary arteries Coarse calcifications are demonstrated in the aortic annulus, and the mitral annulus, and in the mitr al leaflets No pathologically enlarged thoracic lymph node is identified There is a moderate hiatal hernia Limited scans through the upper abdomen are grossly unremarkable The visualized osseous structures appear grossly intact. IMPRESSION: Negative for CTA evidence to suggest pulmonary embolism Right lower lobe and right middle lobe infiltrate. Leading diagnostic consideration is for infection Hiatal hernia All CT scans are performed using dose optimization techniques as appropriate to the performed exam an d include at least one of the following: Automated exposure control, adjustment of the mA and/or kV according t o size, and the use of iterative reconstruction technique.
[2024-10-14 10:01] LABS: ABG O2 HGB 84.5 % (95-100); COHb 1.4 (0.5-1.5); HCO3 36.4 (21-28); MetHb 1.3 (0-1.5); sO2 86.9 % (94-98); tHb 10.3 g/dl (11.7-17.4)
[2024-10-14 10:03] LABS: ABG PH 7.24 (7.35-7.45)
[2024-10-14] MEDS: XANAX PO PRN (10:58)
[2024-10-14] MEDS: LEVAQUIN 750 MG/150 ML D5W 750 MG/150 ML BAG IV SCH (13:17)
[2024-10-14] MEDS: ATIVAN IVP ONE (16:06)
[2024-10-14 17:20] LABS: ABG O2 HGB 92.6 % (95-100); BEecf 14.2 (-2.0-3.0); COHb 1.3 (0.5-1.5); HCO3 40.9 (21-28); MetHb 1.9 (0-1.5); TCO2 43.6 (19-24); sO2 96.3 % (94-98); tHb 9.9 g/dl (11.7-17.4)
[2024-10-14 17:24] LABS: ABG PH 7.28 (7.35-7.45)
[2024-10-14] MEDS: PULMICORT 1 MG/2 ML NEB SCH (17:50)
[2024-10-14 20:15] LABS: ABG O2 HGB 91.7 % (95-100); ABG PH 7.31 (7.35-7.45); HCO3 41.3 (21-28); TCO2 43.8 (19-24); sO2 95.3 % (94-98); tHb 9.9 g/dl (11.7-17.4)
[2024-10-14] MEDS: ATIVAN IVP PRN (20:43)
[2024-10-15 01:57] VITALS: RESP 20
[2024-10-15 05:18] VITALS: BP 152/88; PULSE 87; TEMP 97.1
[2024-10-15 05:42] LABS: BASOPHILS % (AUTO) 0.1 % (0.0-3.0); HEMATOCRIT 36.1 % (42.0-52.0); HEMOGLOBIN 9.6 g/dl (14.0-18.0); IMMATURE GRANULOCYTE # (AUTO) 0.2 (0.0-1.0); IMMATURE GRANULOCYTE % (AUTO) 1.3 % (0.0-5.0); LYMPHOCYTES # (AUTO) 0.3 K/uL (0.60-3.4); LYMPHOCYTES % (AUTO) 2.2 (10.0-50.0); MEAN CORPUSCULAR HEMOGLOBIN 24.7 pg (27.0-31.0); MEAN CORPUSCULAR HGB CONC 26.6 (31.8-35.4); MONOCYTES # (AUTO) 0.4 K/uL (0.4-2.0); MONOCYTES % (AUTO) 3.5 (0-10); NEUTROPHILS # (AUTO) 10.8 K/ul (2.0-6.9); NEUTROPHILS % (AUTO) 92.9 % (42.2-75.2); PLATELET COUNT 273 10^3/uL (140-440); RED BLOOD COUNT 3.88 10^6/ul (4.70-6.10); WHITE BLOOD COUNT 11.65 K/ul (4.2-10.2)
[2024-10-15 05:47] LABS: ABG O2 HGB 92.8 % (95-100); ABG PH 7.35 (7.35-7.45); BEecf 15.8 (-2.0-3.0); COHb 1.3 (0.5-1.5); HCO3 41.4 (21-28); MetHb 1.5 (0-1.5); TCO2 43.7 (19-24); sO2 95.9 % (94-98); tHb 9.8 g/dl (11.7-17.4)
[2024-10-15 05:58] LABS: ALANINE AMINOTRANSFERASE 19.8 U/L (0-50); ALBUMIN 4.01 g/dL (3.5-5.0); ALKALINE PHOSPHATASE 69.9 U/L (56-119); BILIRUBIN,TOTAL 0.32 mg/dL (0.2-1.3); BLOOD UREA NITROGEN 33.5 mg/dL (9-20); CALCIUM 9.1 mg/dL (8.4-10.2); CARBON DIOXIDE 39.2 mmol/L (22-30.0); CHLORIDE 97.2 mmol/L (98-107); CREATININE 1.03 mg/dL (0.60-1.10); GLUCOSE 139.4 mg/dL (74-106); POTASSIUM 5.48 mmol/L (3.5-5.1); SODIUM 138.5 mmol/L (134.5-145); TOTAL PROTEIN 7.71 g/dL (6.3-8.2)
--- NOTE | 2024-10-15 10:19 | DCSUM ---
Admission Date Admission Date: 10/12/24 Discharge Date Discharge Date: 10/15/24 Admission Diagnosis Admission Diagnosis: 1. RLL Community Acquired Pneumonia 2. COPD 3. Hypertension 4. GERD 5. Hyperlipidemia Discharge Diagnosis Discharge Diagnosis: 1. Acute on Chronic Respiratory Failure in setting of RLL CAP and COPD - resolved 2. RLL Community Acquired Pneumonia - improving 3. COPD -improving 4. Hypertension - chronic, stable 5. GERD - chronic, stable 6. Hyperlipidemia - chronic, stable 7. Fluid retention -resolved Hospital Provider Hospital [facility] Primary Care Physician Primary Care Physician: ANDREA PERRY Summary of History and Physical Summary of History and Physical: 68 yo male with chronic respiratory failure with continuous requirement of 3L of oxygen, COPD, HTN, and TIA presented to the ER from local SNF with complaints of shortness of breath, cough, and body aches. States he has not been feeling well for "quite awhile" and just can't seem to get better. Reports productive cough with yellow brown sputum. Denies fever that he is aware of. Reports aching in hands and feet. Denies n/v/d, chest pain. Found to have RLL pneumonia. Admitted to med/surg observation. Hospital Course Subjective: During stay patient was initially treated for right lower lobe community- acquired pneumonia with Rocephin and azithromycin and steroids nebs. Strep pneumo and Legionella were collected final report pending. MRSA negative. Sputum culture initially showed growth of gram-positive cocci, final report was Proteus mirabilis. Patient completed course of azithromycin, discontinued Rocephin and switched to Levaquin yesterday due to no improvement of condition. Yesterday patient became mildly confused oxygen saturation was dipping down into the low 80s. Blood gas was showing low pH and high pCO2. Patient is noncompliant with wearing his CPAP or BiPAP unsure of what he has at the SNF. Had difficulties initially wearing BiPAP yesterday. Trended ABGs. Patient was compliant with BiPAP overnight and ABG results at baseline levels this a.m. On home O2 at 3-4 L and maintaining appropriate saturations. Lung sounds are clear and patient overall appears better today. Heart rate has still been elevated at times, patient is obese and deconditioned. Started on metoprolol for sinus tachycardia. 25 mg twice daily Vital signs stable. Labs stable. DC on Levaquin 750 x 4 days, metoprolol tartrate 25 mg twice daily Follow-up with PCP in 1 week Appearance: Pleasant, No Apparent Distress and Alert HEENT: MMM, Supple and No JVD CVS: No Murmur Abdomen: Soft, Non-Tender and No Distention Respiratory: No Dyspnea Extremities: No Edema Vital Signs: Most Recent Vital Signs Temperature 97.1 F L 10/15/24 05:16 Temperature Source Temporal Artery Scan 10/15/24 05:16 Temperature Source Oral 10/11/24 22:51 Pulse Rate 87 10/15/24 05:16 Respiratory Rate 20 10/15/24 05:16 Blood Pressure 152/88 H 10/15/24 05:16 Blood Pressure Mean 109 10/15/24 05:16 Blood Pressure Right Arm 152/89 10/12/24 02:36 Blood Pressure Location Left Arm 10/15/24 05:16 Blood Pressure Position Supine 10/15/24 05:16 O2 Sat by Pulse Oximetry 99 10/15/24 05:16 Oxygen Delivery Method Nasal Cannula 10/15/24 08:00 Oxygen Flow Rate 4 10/15/24 08:00 Fraction of Inspired Oxygen (FIO2) 3 10/15/24 05:07 Height 5 ft 9 in 10/13/24 10:42 Weight 113.2 kg 10/13/24 10:42 Telemetry Type Remote Telemetry 10/15/24 07:00 Telemetry Monitoring Continues 10/15/24 07:00 Telemetry Heart Rate 109 H 10/15/24 07:00 Telemetry SPO2 96 10/15/24 00:48 EKG NM Interval 0.14 10/15/24 07:00 EKG QRS Interval 0.08 10/15/24 07:[address] 10/15/24 07:00 Imaging: EXAM: CHEST CTA WITH CONTRAST (PULMONARY ARTERY) HISTORY: Tachycardia and shortness of breath. TECHNIQUE: CTA acquisition of the chest from the thoracic inlet to the upper abdomen following IV contrast administration timed to filling of the pulmonary artery. IV Contrast: 100 mL of Omnipaque 350 administered. 3D/MIP/VR images were utilized. CT Dose Reduction Techniques Employed: Yes. COMPARISON: 05/30/2023. The FINDINGS: Status post left shoulder arthroplasty. Streak artifact related to the shoulder prosthesis, and artifact related to patient motion limits interpretation No intraluminal filling defect is seen within the main pulmonary artery or its major segmental branches to suggest pulmonary embolism A mild, ill-defined consolidative infiltrate is demonstrated in the right lower lobe. There is mild infiltrate is demonstrated in the right middle lobe Features of pulmonary emphysema appear moderate to moderately severe Negative for significant pleural or pericardial effusion Negative for focal aneurysm, intimal dissection, or mural disruption involving the thoracic aorta Atherosclerotic calcifications are demonstrated throughout the visualized arterial structures, including the wales coronary arteries Coarse calcifications are demonstrated in the aortic annulus, and the mitral annulus, and in the mitral leaflets No pathologically enlarged thoracic lymph node is identified There is a moderate hiatal hernia Limited scans through the upper abdomen are grossly unremarkable The visualized osseous structures appear grossly intact. IMPRESSION: Negative for CTA evidence to suggest pulmonary embolism Right lower lobe and right middle lobe infiltrate. Leading diagnostic consideration is for infection Hiatal hernia EXAM: SINGLE VIEW OF THE CHEST. History: Chronic obstructive pulmonary disease Comparison: Chest radiograph 07/08/2024 FINDINGS: Heart size is within normal limits. Right basilar consolidation. No appreciable pleural fluid and no pneumothorax. No acute osseous abnormalities. Atherosclerotic vascular calcifications. Left shoulder arthroplasty hardware. Impression: Right lower lobe pneumonia Lab Results Last 24 Hours: 10/15/24 10/15/24 10/14/24 05:40 05:35 20:05 WBC 11.65 H RBC 3.88 L Hgb 9.6 L Hct 36.1 L MCV 93.0 MCH 24.7 L MCHC 26.6 L RDW Coeff of Angelica 15.0 H Plt Count 273 Immature Gran % (Auto) 1.3 Neut % (Auto) 92.9 H Lymph % (Auto) 2.2 L [place] % (Auto) 3.5 Eos % (Auto) 0.0 Baso % (Auto) 0.1 Neut # (Auto) 10.8 H Lymph # (Auto) 0.3 L [place] # (Auto) 0.4 Eos # (Auto) 0.0 Baso # (Auto) 0.0 Immature Gran # (Auto) 0.2 Puncture Site Rr Rr Base Excess 15.8 H 15.0 H O2 Saturation 95.9 95.3 ABG pH 7.35 7.31 L ABG pCO2 75.0 H 82.0 H ABG pO2 85.0 84.0 L ABG HCO3 41.4 H 41.3 H ABG Total CO2 43.7 H 43.8 H Daniele Test Pos Pos Hemoglobin 1.5 2.0 H Oxyhemoglobin 92.8 L 91.7 L Carboxyhemoglobin 1.3 1.0 Total Hemoglobin 9.8 L 9.9 L O2 Delivery Device Bipap Bipap FiO2 % 35.0 35.0 Sodium 138.5 Potassium 5.48 H Chloride 97.2 L Carbon Dioxide 39.2 H Anion Gap 7.58 BUN 33.5 H Creatinine 1.03 Estimated GFR (MDRD) 72.00 BUN/Creatinine Ratio 32.52 Glucose 139.4 H Calcium 9.10 Total Bilirubin 0.32 AST 28.0 ALT 19.8 Alkaline Phosphatase 69.9 Total Protein 7.71 Albumin 4.01 Globulin 3.70 Albumin/Globulin Ratio 1.08 10/14/24 17:16 WBC RBC Hgb Hct MCV MCH MCHC RDW Coeff of Angelica Plt Count Immature Gran % (Auto) Neut % (Auto) Lymph % (Auto) [place] % (Auto) Eos % (Auto) Baso % (Auto) Neut # (Auto) Lymph # (Auto) [place] # (Auto) Eos # (Auto) Baso # (Auto) Immature Gran # (Auto) Puncture Site Rt rad Base Excess 14.2 H O2 Saturation 96.3 ABG pH 7.28 L* ABG pCO2 87.0 H ABG pO2 94.0 ABG HCO3 40.9 H ABG Total CO2 43.6 H Daniele Test Pos Hemoglobin 1.9 H Oxyhemoglobin 92.6 L Carboxyhemoglobin 1.3 Total Hemoglobin 9.9 L O2 Delivery Device Bipap FiO2 % 35.0 Sodium Potassium Chloride Carbon Dioxide Anion Gap BUN Creatinine Estimated GFR (MDRD) BUN/Creatinine Ratio Glucose Calcium Total Bilirubin AST ALT Alkaline Phosphatase Total Protein Albumin Globulin Albumin/Globulin Ratio Discharge Instructions Discharge Planning: Discharge Planning > 40 minutes If patient is discharged with left ventricular systolic dysfunction: no Discharged with a beta lolis? [] If no, why not? [] Discharged with an domingo/arb? [] If no, why not? [] Diagnosis: Acute on Chronic Respiratory Failure, Pneumonia Diet: Regular Activity: as tolerated Follow-up with PCP in 1 week. Medications: Levaquin, metoprolol, xanax Discharge Medications: Medications at Discharge (Home Meds & RX) famotidine 20 mg tablet (Pepcid) 20 mg PO DAILY #30 tabs 08/19/23 ipratropium 0.5 mg-albuterol 3 mg (2.5 mg base)/3 mL nebulization soln 3 ml inhalation QID soa 08/19/23 acetaminophen 500 mg capsule 1,000 mg PO Q8H PRN fever or pain 07/08/24 albuterol sulfate 2.5 mg/3 mL (0.083 %) solution for nebulization 2.5 mg inhalation TID 07/08/24 albuterol sulfate 90 mcg/actuation aerosol inhaler 2 inh inhalation Q4H PRN shortness of breath or wheezing 07/08/24 aspirin 81 mg chewable tablet 1 tab PO DAILY 07/08/24 atorvastatin 40 mg tablet 40 mg PO QPM 07/08/24 budesonide 160 mcg-glycopyr 9 mcg-formot 4.8 mcg/actuation HFA inhaler (Breztri Aerosphere) 2 inh inhalation BID 07/08/24 buspirone 10 mg tablet 10 mg PO TID 07/08/24 gabapentin 100 mg capsule 200 mg PO TID 07/08/24 guaifenesin 600 mg tablet, extended release 12 hr (Mucinex) 1,200 mg PO BID 07/08/24 melatonin 5 mg tablet 5 mg PO BEDTIME 07/08/24 montelukast 10 mg tablet 10 mg PO QPM 07/08/24 naproxen 500 mg tablet 500 mg PO BID 07/08/24 ondansetron HCl 4 mg tablet 4 mg PO BID PRN nausea and vomiting 07/08/24 pantoprazole 40 mg tablet,delayed release 40 mg PO DAILY 07/08/24 sennosides 8.6 mg-docusate sodium 50 mg tablet 2 tab-cap PO DAILY PRN constipation 07/08/24 sucralfate 1 gram tablet 1 g PO QID 07/08/24 furosemide 40 mg tablet 40 mg PO DAILY 10/11/24 tramadol 50 mg tablet 50 mg PO 2XD PRN pain 10/11/24 Discharge Plan Discharge Discharge Orders: Discharge Patient (ONCE); Ordered 10/15/24 Ordered By: MERRY ELIZONDO Activity Restrictions/Additional Instructions: Diagnosis: Acute on Chronic Respiratory Failure, Pneumonia Diet: Regular Activity: as tolerated Follow-up with PCP in 1 week. Medications: Levaquin, metoprolol, xanax Instructions: Community Acquired Pneumonia (GEN), Acute Respiratory Failure (GEN) Care Plan Goals: Problem: Impaired Respiratory Status Goal: Exhibit optimal respiratory function Instructions: Activities as tolerated Apply oxygen as ordered Elevate head of bed Notify MD of increased congestion Patient Disposition: TRANSFER SNF Prescriptions: New alprazolam 0.5 mg Tablet 0.5 mg PO TID PRN (Reason: anxiety) Qty: 90 0RF metoprolol tartrate 25 mg Tablet 25 mg PO BID Qty: 60 0RF levofloxacin 750 mg tablet 750 mg PO DAILY Qty: 4 0RF Continued famotidine [Pepcid] 20 mg tablet 20 mg PO DAILY Qty: 30 0RF furosemide 40 mg tablet 40 mg PO DAILY tramadol 50 mg tablet 50 mg PO 2XD PRN (Reason: pain) albuterol sulfate 90 mcg/actuation HFA aerosol inhaler 2 inh inhalation Q4H PRN (Reason: shortness of breath or wheezing) Qty: 6.7 0RF acetaminophen 500 mg capsule 1,000 mg PO Q8H PRN (Reason: fever or pain) aspirin 81 mg tablet,chewable 1 tab PO DAILY atorvastatin 40 mg tablet 40 mg PO QPM Breztri Aerosphere 160-9-4.8 mcg/actuation HFA aerosol inhaler 2 inh inhalation BID buspirone 10 mg tablet 10 mg PO TID gabapentin 100 mg capsule 200 mg PO TID guaifenesin [Mucinex] 600 mg tablet extended release 12hr 1,200 mg PO BID melatonin 5 mg tablet 5 mg PO BEDTIME montelukast 10 mg tablet 10 mg PO QPM naproxen 500 mg tablet 500 mg PO BID ondansetron HCl 4 mg tablet 4 mg PO BID PRN (Reason: nausea and vomiting) pantoprazole 40 mg tablet,delayed release (DR/EC) 40 mg PO DAILY sennosides-docusate sodium 8.6-50 mg tablet 2 tab-cap PO DAILY PRN (Reason: constipation) sucralfate 1 gram tablet 1 g PO QID Rx Instructions: 1 tab before meals and 1 at bedtime Changed ipratropium-albuterol 0.5 mg-3 mg(2.5 mg base)/3 mL solution for nebulization 3 ml inhalation Q4-6H Qty: 90 0RF No Action albuterol sulfate 2.5 mg /3 mL (0.083 %) solution for nebulization 2.5 mg inhalation TID Patient Comments: [NO ORIGINAL SIG] Did you review [place] [employer] for ALL controlled substances?: No Discussed opioids are addictive and Narcan is available by prescription or from pharmacy.: No Condition: Fair
[2024-10-15] MEDS: LOPRESSOR PO SCH (10:28)
[2024-10-15 16:12] LABS: SPECIMEN SOURCE Urine (.); STEP PNEUMO ORGANISM ID Not indicated. (.); STREP PNEUMO AG Negative (Negative); STREP PNEUMO BODY FLUID CULT Not indicated. (.)
== END 2024-10-15 15:00 | DRG 193 ==
LOC: ED 22:50 → MEDSURG B 22:50
PROVIDERS: ADMIT Hospitalist; ATTEND Nurse Practitioner Family